=== PATIENT | female | born 1980 | race Caucasian/White ===

== ENCOUNTER 2017-01-19 04:28 | Emergency (ER) | payer BC ==
[2017-01-19] MEDS ORDERED: Ondansetron INJ* 2 MG/ML VIAL ONE (04:50)
[2017-01-19] MEDS ORDERED: Ondansetron INJ* 2 MG/ML VIAL IV ONE (04:51)
[2017-01-19] MEDS ORDERED: NS 0.9% 1000 ML* 2,000 ML IV ONE (04:51)
[2017-01-19] MEDS ORDERED: HYDROmorphone* 1 MG/ML 1 ML SYR IV SLOW PU ONE ×2 (05:29→06:23)
--- NOTE | 2017-01-19 05:40 | ED ---
Betty Clements Edward, scribed for Miguel Vargas MD on 01/19/17 at 0437 . Headache - HPI Summary HPI Summary: 37 y/o female presents to ED c/o LIRIANO starting at 03:00 today. The LIRIANO radiates to the R eye and R ear. Patient went to bed at 23:00 and woke up at 03:00 with a LIRIANO and nausea. Pt states that she feels as if she is dehydrated. 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 - History Of Current Complaint Chief Complaint: EDHeadache Stated Complaint: HEADACHE/DEHYDRATION/VOMITING Hx Obtained From: Patient Onset/Duration: Sudden Onset, Started hours ago - 03:00 today Radiates to: R eye and R ear Associated Signs And Symptoms: Nausea, Other (Noted In Comments) - Dehydrated - Allergies/Home Medications Allergies/Adverse Reactions: Allergies Allergy/AdvReac Type Severity Reaction Status Date / Time Albuterol Allergy Unknown Verified 01/19/17 04:34 Reaction Details Cephalexin [From Keflex] Allergy See Comment Verified 01/19/17 04:34 Ketorolac Tromethamine Allergy Rash And Verified 01/19/17 04:34 [From Toradol] Itching Latex Allergy Anaphylatic Verified 01/19/17 04:34 Shock Morphine Allergy Rash Verified 01/19/17 04:34 Penicillins [PCN] Allergy Hives Verified 01/19/17 04:34 PMH/Surg Hx/FS Hx/Imm Hx Previously Healthy: No Endocrine/Hematology History: Denies: Hx Anticoagulant Therapy, Hx Blood Disorders, Hx Diabetes, Hx Thyroid Disease, Hx Anemia, Hx Unexplained Bleeding Cardiovascular History: Reports: Hx Congestive Heart Failure, Other Cardiovascular Problems/Disorders - Hx OF pericarditis 2ndry to viral illness ( 2011) Denies: Hx Hypertension, Hx Pacemaker/ICD Respiratory History: Reports: Hx Asthma, Other Respiratory Problems/Disorders - nodule, bronchitis, pneumonia Denies: Hx Chronic Obstructive Pulmonary Disease (COPD) GI History: Denies: Hx Diverticulosis, Hx Gastroesophageal Reflux Disease, Hx Hiatal Hernia History: Denies: Hx Renal Disease Musculoskeletal History: Reports: Other Musculoskeletal History - right knee surgey Sensory History: Denies: Hx Hearing Aid Neurological History: Reports: Hx Migraine - receives prophylactic Denies: Hx Dementia, Hx Seizures Psychiatric History: Denies: Hx Panic Disorder, Hx Substance Abuse - Cancer History Hx Chemotherapy: No Hx Radiation Therapy: No - Surgical History Surgery Procedure, Year, and Place: 2000 right shoulder [facility] . 2003 right knee [facility]. 2001 right ovarian cyst [facility]. 2002 [facility]. 2002pylinodial cyst [facility] Hx Anesthesia Reactions: Yes - USUALLY N/V Infectious Disease History: Denies: Hx Hepatitis, Hx Human Immunodeficiency Virus (HIV), Traveled Outside the [place] in Last 30 Days - Family History Known Family History: Positive: Other - Positive for Breast CA - mother. Negative for Colitis - Social History Occupation: Employed Full-time Lives: With Family Alcohol Use: None Hx Substance Use: No Substance Use Type: Reports: None Hx Tobacco Use: No Smoking Status (MU): Never Smoked Tobacco Have You Smoked in the Last Year: No Review of Systems Constitutional: Other - Dehydrated Eyes: Negative ENT: Negative Cardiovascular: Negative Respiratory: Negative Positive: Nausea - due to LIRIANO Genitourinary: Negative Musculoskeletal: Negative Skin: Negative Positive: Headache Psychological: Normal All Other Systems Reviewed And Are Negative: Yes Physical Exam Triage Information Reviewed: Yes Vital Signs On Initial Exam: Initial Vitals Temp Pulse Resp BP Pulse Ox 97.5 F 64 20 114/70 99 01/19/17 04:30 01/19/17 04:30 01/19/17 04:30 01/19/17 04:30 01/19/17 04:30 Vital Signs Reviewed: Yes Appearance: Positive: Well-Appearing, Pain Distress - mild discomfort Skin: Positive: Warm Head/Face: Positive: Normal Head/Face Inspection Eyes: Positive: EOMI, RENETTA ENT: Positive: Hearing grossly normal Neck: Positive: Supple, Nontender Respiratory/Lung Sounds: Positive: Clear to Auscultation, Breath Sounds Present Cardiovascular: Positive: RRR Abdomen Description: Positive: Nontender, Soft Bowel Sounds: Positive: Present Musculoskeletal: Positive: Strength/ROM Intact Neurological: Positive: Alert, Oriented to Person Place, Time Diagnostics - Vital Signs Vital Signs Temp Pulse Resp BP Pulse Ox 01/19/17 04:30 97.5 F 64 20 114/70 99 - Laboratory Lab Statement: Any lab studies that have been ordered have been reviewed, and results considered in the medical decision making process. Re-Evaluation - Re-Evaluation 1 Re-Evaluation Time: 06:40 - Discuss patient care Change: Improved Headache Course/Dx - Course Assessment/Plan: 37 y/o female presents to ED c/o LIRIANO starting at 03:00 today. The LIRIANO radiates to the R eye and R ear. Patient went to bed at 23:00 and woke up at 03:00 with a LIRIANO and nausea. Pt states that she feels as if she is dehydrated. 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 Pt was given Zofran and IV fluids in the ED course. Pt will be d/c with f/u with PCP, and instructed to take medications as prescribed. - Diagnoses Provider Diagnoses: Migraine headache Discharge - Discharge Plan Condition: Improved Disposition: HOME Patient Education Materials: Migraine Headache (ED) Referrals: Aram Burton MD [Primary Care Provider] - 3 Days (Please f/u in 2-3 days) Additional Instructions: Take medications as prescribed The documentation as recorded by the Betty chavis Edward accurately reflects the service I personally performed and the decisions made by , Miguel Vargas MD.
[2017-01-19] MEDS ORDERED: NS 0.9% 1000 ML* 1,000 ML IV ONE (06:23)
[2017-01-19] MEDS ORDERED: Metoclopramide IV* 5 MG/ML 2 ML VIAL IV ONE (06:59)
[2017-01-19] MEDS ORDERED: diPHENhydraMINE IV* 50 MG/ML 1 ml VIAL (BENADRYL) IV ONE (06:59)
[2017-01-19 08:12] VITALS: BP 93/55
== END 2017-01-19 08:11 | disposition home or self-care (01) ==
LOC: ED 04:28
DX: G43.909 Migraine, unspecified, not intractable, without status migrainosus (principal); R11.0 Nausea; E86.0 Dehydration; I50.9 Heart failure, unspecified; J45.909 Unspecified asthma, uncomplicated; Z88.0 Allergy status to penicillin; Z88.1 Allergy status to other antibiotic agents; Z88.5 Allergy status to narcotic agent; Z91.040 Latex allergy status
CPT/HCPCS: 96361; 96374; 96375; 96376; 99284; J1170; J1200; J2405; J2765

== ENCOUNTER 2017-06-01 21:05 | Emergency (ER) | payer SELFPAY ==
[2017-06-01] MEDS ORDERED: Cyclobenzaprine TAB* 10 MG PO ONE (22:29)
--- NOTE | 2017-06-01 22:31 | ED ---
Upper Extremity Pain - HPI Summary HPI Summary: 37 female presents to ED with complaints of left shoulder pain after na injury that occurred at work. 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 States she felt some crackling and tearing. States since it has been aching and becomes more painful upon movement and using it. Patient denies current numbness /tingling. Has ROM however increases pain. States pain is mainly in the front of her shoulder without radiation. No other complaints. Is left hand dominant. Took ibuprofen for pain with some relief. No PMHx. - History of Current Complaint Chief Complaint: EDExtremityUpper Stated Complaint: LT ARM INJURY Time Seen by Provider: 06/01/17 21:27 Hx Obtained From: Patient Mechanism Of Injury: Twisted Onset/Duration: Started Hours Ago, Traumatic, Still Present Timing: Lasting Hours Severity Initially: Mild Severity Currently: Moderate Pain Location: Shoulder - left Character: Sharp - with movements, Aching Aggravating Factor(s): Movement, Lifting, Flexion, Extension, Internal/External Rotation, Abduction Alleviating Factor(s): Rest, OTC Meds Associated Signs & Symptoms: Negative: Swelling, Redness, Bruising, Weakness, Numbness/Tingling Related History: Dominant Hand Left - Allergies/Home Medications Allergies/Adverse Reactions: Allergies Allergy/AdvReac Type Severity Reaction Status Date / Time Albuterol Allergy Unknown Verified 01/19/17 04:34 Reaction Details Cephalexin [From Keflex] Allergy See Comment Verified 01/19/17 04:34 Ketorolac Tromethamine Allergy Rash And Verified 01/19/17 04:34 [From Toradol] Itching Latex Allergy Anaphylatic Verified 01/19/17 04:34 Shock Morphine Allergy Rash Verified 01/19/17 04:34 Penicillins [PCN] Allergy Hives Verified 01/19/17 04:34 PMH/Surg Hx/FS Hx/Imm Hx Endocrine/Hematology History: Denies: Hx Anticoagulant Therapy, Hx Blood Disorders, Hx Diabetes, Hx Thyroid Disease, Hx Anemia, Hx Unexplained Bleeding Cardiovascular History: Reports: Hx Congestive Heart Failure, Other Cardiovascular Problems/Disorders - Hx OF pericarditis 2ndry to viral illness ( 2011) Denies: Hx Hypertension, Hx Pacemaker/ICD Respiratory History: Reports: Hx Asthma, Other Respiratory Problems/Disorders - nodule, bronchitis, pneumonia Denies: Hx Chronic Obstructive Pulmonary Disease (COPD) GI History: Denies: Hx Diverticulosis, Hx Gastroesophageal Reflux Disease, Hx Hiatal Hernia History: Denies: Hx Renal Disease Musculoskeletal History: Reports: Other Musculoskeletal History - right knee surgey Sensory History: Denies: Hx Hearing Aid Neurological History: Reports: Hx Migraine - receives prophylactic Denies: Hx Dementia, Hx Seizures Psychiatric History: Denies: Hx Panic Disorder, Hx Substance Abuse - Cancer History Hx Chemotherapy: No Hx Radiation Therapy: No - Surgical History Surgery Procedure, Year, and Place: 2000 right shoulder [facility] . 2003 right knee [facility]. 2001 right ovarian cyst [facility]. 2002 [facility]. 2002pylinodial [facility] Hx Anesthesia Reactions: Yes - USUALLY N/V - Immunization History Immunizations Up to Date: Yes Infectious Disease History: No Infectious Disease History: Denies: Hx Hepatitis, Hx Human Immunodeficiency Virus (HIV), Traveled Outside the [place] in Last 30 Days - Family History Known Family History: Positive: Unknown, Other - Positive for Breast CA - mother. Negative for Colitis - Social History Alcohol Use: None Hx Substance Use: No Substance Use Type: Reports: None Hx Tobacco Use: No Smoking Status (MU): Never Smoked Tobacco Have You Smoked in the Last Year: No Review of Systems Constitutional: Negative Cardiovascular: Negative Respiratory: Negative Positive: Arthralgia, Myalgia - left shoulder Skin: Negative Neurological: Negative All Other Systems Reviewed And Are Negative: Yes Physical Exam Triage Information Reviewed: Yes Vital Signs On Initial Exam: Initial Vitals Temp Pulse Resp BP Pulse Ox 98.7 F 90 16 131/88 96 06/01/17 21:08 06/01/17 21:08 06/01/17 21:08 06/01/17 21:08 06/01/17 21:08 Vital Signs Reviewed: Yes Appearance: Positive: Well-Appearing, No Pain Distress, Well-Nourished Skin: Positive: Warm, Skin Color Reflects Adequate Perfusion, Dry. Negative: Cold, Soft, Erythema @ Head/Face: Positive: Normal Head/Face Inspection Neck: Positive: Supple, Nontender Respiratory/Lung Sounds: Positive: Clear to Auscultation, Breath Sounds Present. Negative: Rales, Rhonchi, Wheezes Cardiovascular: Positive: Normal, RRR, Pulses are Symmetrical in both Upper and Lower Extremities - 2+ radial b/l. Negative: Murmur, Rub Musculoskeletal: Positive: Strength/ROM Intact - however painful with movement of left shoulder, although able, Pain @ - left anterior shoulder, Other - no crepitus step off or obvious deformity noted, no ecchymosis or edema. biceps muscle intact, no c spine pain. rest of LUE normal exam. Negative: Limited @, Interruption @, Abnormal @, Edema Left Neurological: Positive: Normal, Sensory/Motor Intact, Alert, Oriented to Person Place, Time, CN Intact II-III, Reflexes Intact, NV Bundle Intact Distally - Aaron Coma Scale Coma Scale Total: 15 Diagnostics - Vital Signs Vital Signs Temp Pulse Resp BP Pulse Ox 06/01/17 21:08 98.7 F 90 16 131/88 96 - Laboratory Lab Statement: Any lab studies that have been ordered have been reviewed, and results considered in the medical decision making process. - Radiology left shoulder Xray Interpretation: No Acute Changes - no evidence for acute fracture or dislocation. possible calcific tendonitis Radiology Interpretation Completed By: ED Physician - Dr Ayala and myself, Radiologist Course/Dx - Course Course Of Treatment: xray obtained and negative for acute injury. appears to have suffered a sprain and possible ligament/rotator cuff or labrum injury. continue NSAIDs, heat/ice, rest, refrain from use and sling. Also recommended trying muscle relaxer. Patient stated she has sling at home from previous right shoulder injury. Not supplied another in ED. Follow up with PCP/Ortho. Aware of worsening signs and symptoms. No other concerns at this time. - Diagnoses Differential Diagnosis/HQI/PQRI: Positive: Fracture (Closed), Strain, Sprain Provider Diagnoses: Sprain of shoulder, left Discharge - Discharge Plan Condition: Good Disposition: HOME Prescriptions: Cyclobenzaprine TAB* [Flexeril 10 MG TAB*] 10 mg PO BEDTIME #10 tab Patient Education Materials: Shoulder Sprain (ED) Referrals: Aram Burton MD [Primary Care Provider] - Additional Instructions: Take prescribed flexeril as needed to help with pain, muscle spasm- see if it helps. Continue ibuprofen or naproxen to help with inflammation. Rest, sling and apply heat. Avoid use. Symptoms worsen or do not improve please follow up with ortho for further evaluation and imaging.
[2017-06-01 23:00] VITALS: BP 134/84
--- NOTE | 2017-06-02 07:14 | RAD ---
INDICATION: Left shoulder injury. TECHNIQUE: 4 views of the left shoulder were obtained. FINDINGS: The bones are in normal alignment. There is a small 2 mm calcific density adjacent to the proximal humerus. No acute fracture is seen. Joint spaces appear maintained. IMPRESSION: NO EVIDENCE FOR FRACTURE, POSSIBLE CALCIFIC TENDINITIS.
== END 2017-06-01 23:07 | disposition home or self-care (01) ==
LOC: ED 21:05
DX: S43.402A Unspecified sprain of left shoulder joint, initial encounter (principal); X58.XXXA Exposure to other specified factors, initial encounter; Y93.9 Activity, unspecified; Y92.9 Unspecified place or not applicable; I50.9 Heart failure, unspecified; J45.909 Unspecified asthma, uncomplicated; G43.909 Migraine, unspecified, not intractable, without status migrainosus; Z88.5 Allergy status to narcotic agent; Z88.0 Allergy status to penicillin; Z88.8 Allergy status to other drugs, medicaments and biological substances; Z88.1 Allergy status to other antibiotic agents; Z91.040 Latex allergy status
CPT/HCPCS: 99282; A9270-GY

== ENCOUNTER 2017-09-21 07:23 | Day surgery (SDC) | payer OTHER ==
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
[~2017-09-21 07:23] MED LIST: Buffered Lidocaine 0.9% SYRIN* 5 ML/SYR SYRINGE INTRADERM ONE; Dexamethasone IV* 4 MG/ML 1 ML (4 MG) IV SLOW PU ONE; Famotidine IV* 10 MG/ML 2 ML (20 mg) IV ONE
[2017-09-21] MEDS ORDERED: Dexamethasone IV* 4 MG/ML 1 ML (4 MG) ONE (07:34)
[2017-09-21] MEDS ORDERED: Clindamycin 900 MG IVPREMIX(* 900 MG/50 ML SDV IV ONE (07:35)
[2017-09-21] MEDS ORDERED: Famotidine IV* 10 MG/ML 2 ML (20 mg) ONE (07:35)
[2017-09-21] MEDS ORDERED: fentaNYL* 50 MCG/ML 2 ML VIAL (100 MCG VIAL) ONE (08:12)
[2017-09-21] MEDS ORDERED: Propofol* 10 MG/ML 20 ML BTL IV PUSH ONE (08:13)
[2017-09-21] MEDS ORDERED: Midazolam* 1 MG/ML 5 ML VIAL (5 MG) ONE (08:13)
[2017-09-21] MEDS ORDERED: Ketorolac INJ* 30 MG/ML 1 ML VIAL ONE (08:13)
[2017-09-21] MEDS ORDERED: Ondansetron INJ* 2 MG/ML VIAL ONE ×2 (08:13→10:51)
[2017-09-21] MEDS ORDERED: Scopolamine 1.5 mg* PATCH ONE (08:53)
[2017-09-21] MEDS ORDERED: ROPIVACAINE 5 MG/ML 30 ML BTL (0.5%) ONE (08:57)
[2017-09-21] MEDS ORDERED: Scopolamine 1.5 mg* PATCH TRANSDERM SCH (09:00)
[2017-09-21] MEDS ORDERED: Bupivacaine 0.25% SDV* 30 ML ONE (09:09)
[2017-09-21] MEDS ORDERED: Lidocaine 2% PF * 5 ML VIAL ONE (09:14)
[2017-09-21] MEDS ORDERED: Ondansetron INJ* 2 MG/ML VIAL IV PRN (09:43)
[2017-09-21] MEDS ORDERED: oxyCODONE/Acetamin 5/325 MG* TAB PO PRN (09:43)
[2017-09-21] MEDS ORDERED: DiMENhydriNATE IV* 50 MG/ML VIAL IV PUSH PRN (09:43)
[2017-09-21] MEDS ORDERED: fentaNYL* 50 MCG/ML 2 ML VIAL (100 MCG VIAL) IV PRN (09:43)
[2017-09-21] MEDS ORDERED: Naloxone* 0.4 MG/ML 1 ML VIAL IV PRN (09:43)
[2017-09-21] MEDS ORDERED: methylPREDNISolone ACETATE 80* 80 MG/ML 1 ML VIAL ONE (10:16)
[2017-09-21] MEDS ORDERED: DiMENhydriNATE IV* 50 MG/ML VIAL ONE (11:25)
[2017-09-21 13:51] VITALS: BP 110/70
--- NOTE | 2017-09-22 17:57 | OP ---
DATE OF OPERATION: 09/21/17 - [facility] DATE OF : 78 SURGEON: Rosalva Mcdaniel MD PHOTOCOMPOSING KEYBOARD OPERATOR: VITO Cox. An pet care assistant was needed for the entirety of the case to help with positioning, retraction, and was utilized throughout all portions of the case. ANESTHESIOLOGIST: Dr. Lombardo. ANESTHESIA: General, interscalene block. PRE-OP DIAGNOSES: Left shoulder partial thickness tear of the rotator cuff and AC sprain and bicipital tendinitis. POST-OP DIAGNOSES: Low-grade partial thickness tear, impingement, bicipital tendinitis as well as undersurface tearing of the subscapularis, and acromioclavicular joint arthritis. OPERATIVE PROCEDURE: Left shoulder arthroscopy with: 1. Extensive glenohumeral debridement including debridement of the subscap. 2. Subacromial decompression with acromioplasty. 3. Distal clavicle excision. 4. Subpectoral biceps tenodesis. 5. 80 mg of depomedrol injection COMPLICATIONS: None. ESTIMATED BLOOD LOSS: Minimal. IMPLANTS USED: One Bhatia and Nephew, Q-Fix anchor. INDICATIONS: Alva Duncan is a 37-year-old female who sustained a work-related injury in May 2017. She has had persistent shoulder pain. She is refractory to conservative management including physical therapy, antiinflammatories, and injections. She has been diagnosed with a partial thickness tear of the rotator cuff, impingement, AC joint arthritis with AC joint arthropathy and bicipital tendinitis. Risks and benefits of the surgery were discussed at length including, but are not limited to bleeding, infection, damage to nerves, vessels, surrounding structures, wound nonhealing, persistent pain, need for further surgery, scarring, stiffness, incomplete relief of symptoms, and risk of anesthesia, and failure. DESCRIPTION OF PROCEDURE: The patient was greeted in the preoperative area by the attending surgeon. The correct extremity was marked and consent was confirmed. She then underwent interscalene nerve block by the anesthesiologist, after which she was brought back to the operating suite, where she was placed in the supine position on the operating table. She underwent general anesthesia and endotracheal intubation, after which she was appropriately positioned in the right lateral decubitus position. All bony prominences are padded. She was secured with a pegboard. The left arm was draped unsterile with 10 pounds of traction. The left shoulder was prepped and draped in the usual sterile fashion beginning with chlorhexidine soap scrub, and alcohol wipes and a final prep with ChloraPrep. After appropriate surgical pause including site, side, procedure and administration of antibiotics, the standard postero-lateral portal was made with the #11 blade. The scope was introduced into the joint. The joint was examined, there was grade 0 changes to the glenohumeral joint. The anterior and posterior labrum had mild fraying, superior labrum had partial tearing. The biceps maggy was damaged and biceps was subluxed. The undersurface of the subscap had partial thickness tear. The undersurface of the supraspinatus looked pristine. The anterior portal was made in an outside-in fashion. Shaver was used to debride back the anterior, posterior and superior labrum and take the biceps to range of motion, again the maggy was damaged that was obvious and the undersurface of the subscap was damaged. The biceps was then tenotomized and the stump debrided back. The subscapularis was visualized and debrided back only as only a small portion of the tendon was damaged; therefore , the decision was made to not repair this as it only small partial tear. Once the debridement was completed, attention was directed to subacromial space. The scope was positioned in the subacromial space. Lateral portal was made in an outside-in fashion. Shaver was used to remove the abundant bursa that was present, which was significant and thick. Once this was complete, the under- surface of the acromion was skeletonized using electrocautery device. There was a small anterolateral spur, which was then debrided back into a 4-0 oval bur. CA ligament was peeled back. Once the acromioplasty was complete, attention was then directed to the AC joint. There was stenosis of the AC joint. The bur was brought into the anterior portal and approximately 8 mm of distal clavicle was removed using arthroscopic visualization. Once this was done, the clavicle was taken to range of motion. The fluid and debris were removed from this portion of the case. Attention was directed back to the rotator cuff, which was gently probed. There was no full-thickness tears. There was mild fraying on the bursal side of the supraspinatus, but it was not significant. Decision was made to not take this down as it was minimal damage. The final images were obtained and 18- gauge needle was placed under arthroscopic guidance, visualization for later subacromial injection. The bed was airplaned to the left side. The anterior aspect of the shoulder was prepped again using ChloraPrep. A #15 blade was used to make an incision inline with the biceps tendon. Soft tissues were carefully dissected using Metzenbaum scissors until the fascia was identified. The remainder section was then bluntly. The bicipital groove was then palpated. The biceps was brought through the wound. The groove was then prepared in the usual fashion using electrocautery device and the red-ball rasp and osteotome to allow for bony bleeding bed. The Q-Fix anchor drill guidance was then placed and then drilled unicortically. The Q-Fix was deployed with excellent purchase. Sutures were then passed through the tendon approximately 1 cm proximal to the musculotendinous junction in a Xiang-Andrés type configuration. In the excess bicipital stumps, there was synovitis and tendinitis. The biceps was then tied back down. The wound were copiously irrigated with sterile saline. The anterior wounds closed with 2-0 Vicryl and 3-0 Monocryl. The portals were closed with 3-0 nylon. The anterior wound was injected with 20 cc of 0.25% Marcaine plain. She was awoken from anesthesia and transferred to the PACU in stable condition after case has been done. Sterile dressings were applied as well as upper sling. She was awoken from anesthesia and transferred to the PACU in stable condition. POSTOPERATIVE PLAN: She will be nonweightbearing. She will be discharged on pain medications, and antibiotics. She will be in the sling for approximately 4 weeks. She will start physical therapy in approximately 10 days. I will see the patient back in 10 to 14 days. DVT prophylaxis was discussed and deferred due to no personal or family history of DVT. [id number]/[facility] #: [id number] KATINA
== END 2017-09-21 13:54 | disposition home or self-care (01) ==
LOC: OR 07:23
PROVIDERS: ATTEND Orthopaedic Surgery
DX: S46.012A Strain of muscle(s) and tendon(s) of the rotator cuff of left shoulder, initial encounter (principal); S46.112A Strain of muscle, fascia and tendon of long head of biceps, left arm, initial encounter; M75.22 Bicipital tendinitis, left shoulder; M75.42 Impingement syndrome of left shoulder; M19.012 Primary osteoarthritis, left shoulder; G89.18 Other acute postprocedural pain; X50.0XXA Overexertion from strenuous movement or load, initial encounter; Y93.89 Activity, other specified; Y92.89 Other specified places as the place of occurrence of the external cause; Y99.0 Civilian activity done for income or pay; E28.2 Polycystic ovarian syndrome; E27.8 Other specified disorders of adrenal gland; J45.909 Unspecified asthma, uncomplicated
CPT/HCPCS: 81025; A9270-GY; C1776; J1040; J1100; J1240; J1885; J2250; J2405; J2704; J2795; J3010

== ENCOUNTER 2017-10-01 08:17 | Emergency (ER) | payer OTHER ==
--- NOTE | 2017-10-01 10:10 | RAD ---
INDICATION: Left arm pain one week after shoulder surgery COMPARISON: None TECHNIQUE: Real time ultrasound images of the soft tissues of the left upper extremity at the patient's indicated site of swelling and tenderness were acquired with peterson scale and Doppler color flow imaging. FINDINGS: Sonographic examination of the subcutaneous tissues of the left upper extremity and vein were acquired. There is no subcutaneous fluid collection. There is occlusive thrombus of the left cephalic vein from the mid forearm to the proximal upper arm. IMPRESSION: Thrombotic occlusion of the left cephalic vein.
[2017-10-01] MEDS ORDERED: Aspirin EC TAB* 81 MG TAB.EC PO ONE (10:47)
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
[2017-10-01 12:14] VITALS: BP 106/61
== END 2017-10-01 12:13 | disposition home or self-care (01) ==
LOC: ED 08:17
DX: I80.8 Phlebitis and thrombophlebitis of other sites (principal); I82.612 Acute embolism and thrombosis of superficial veins of left upper extremity; R03.0 Elevated blood-pressure reading, without diagnosis of hypertension; I50.9 Heart failure, unspecified
CPT/HCPCS: 99282; A9270-GY

== ENCOUNTER 2018-06-08 05:35 | Day surgery (SDC) | payer BC ==
[~2018-06-08 05:35] MED LIST changes: -Dexamethasone IV* 4 MG/ML 1 ML (4 MG) IV SLOW PU ONE; -Famotidine IV* 10 MG/ML 2 ML (20 mg) IV ONE
[2018-06-08] MEDS ORDERED: Famotidine IV* 10 MG/ML 2 ML (20 mg) ONE (05:58)
[2018-06-08] MEDS ORDERED: Lactated Ringers 1000 ML Bag* 1,000 ML IV SCH (06:00)
[2018-06-08] MEDS ORDERED: Famotidine IV* 10 MG/ML 2 ML (20 mg) IV ONE (06:00)
[2018-06-08] MEDS ORDERED: DOXYcycline IV* 100 MG in NS 0.9% 250 ML* 250 ML IVPB ONE (07:00)
[2018-06-08] MEDS ORDERED: Chloroprocaine 2%* 20 ML VIAL ONE (07:16)
[2018-06-08] MEDS ORDERED: DiMENhydriNATE IV* 50 MG/ML VIAL ONE (07:16)
[2018-06-08] MEDS ORDERED: Ondansetron INJ* 2 MG/ML VIAL ONE (07:16)
[2018-06-08] MEDS ORDERED: Lidocaine 2% PF * 5 ML VIAL ONE (07:16)
[2018-06-08] MEDS ORDERED: Ketorolac INJ* 30 MG/ML 1 ML VIAL ONE (07:16)
[2018-06-08] MEDS ORDERED: fentaNYL* 50 MCG/ML 2 ML VIAL (100 MCG VIAL) ONE (07:23)
[2018-06-08] MEDS ORDERED: Acetaminophen TAB* 325 MG PO PRN (07:47)
[2018-06-08] MEDS ORDERED: DiMENhydriNATE IV* 50 MG/ML VIAL IV PUSH PRN (07:47)
[2018-06-08] MEDS ORDERED: fentaNYL* 50 MCG/ML 2 ML VIAL (100 MCG VIAL) IV PRN (07:47)
[2018-06-08 09:55] VITALS: BP 118/66
--- NOTE | 2018-06-08 10:16 | OP ---
DATE OF OPERATION: 06/08/18 - [facility] DATE OF : 78 SURGEON: Nikunj Fuentes MD GENERATOR TECHNICIAN: None. ANESTHESIA: Spinal. PRE-OP DIAGNOSIS: Missed . POST-OP DIAGNOSIS: Missed . OPERATIVE PROCEDURE: D and C. ESTIMATED BLOOD LOSS: 50 cc. SPECIMEN: Includes products of conception. FINDINGS: Small amount of tissue. DESCRIPTION OF PROCEDURE: The patient identified, procedure identified as a D and C. The patient was taken to the operating room, prepped and draped in the usual fashion in dorsal lithotomy position under spinal anesthesia. Two single- tooth tenaculums were placed in the anterior lip of the cervix. Cervix was easily dilated up to a #31 Galvan dilator. The #10 suction curette was inserted and suction curettage performed with a small amount of tissue obtained. The sharp curette was inserted and sharp curettage performed until a gritty sensation was felt throughout the uterine circumference and no further tissue was obtained. Good hemostasis was verified and all instruments removed from vagina and the patient returned to the recovery room in stable condition. [id number] #: [id number] MTDD
== END 2018-06-08 09:58 | disposition home or self-care (01) ==
LOC: OR 05:35
PROVIDERS: ATTEND Obstetrics & Gynecology
DX: O02.1 Missed abortion (principal); J45.909 Unspecified asthma, uncomplicated; E28.2 Polycystic ovarian syndrome
CPT/HCPCS: 99001; J1240; J1885; J2400; J2405; J3010

== ENCOUNTER 2018-06-13 18:13 | Day surgery (SDC) | payer BC ==
[2018-06-13 18:41] LABS: ABS Basophils 0.1 10^3/ul (0-0.2); ABS Eosinophils 0.4 10^3/ul (0-0.6); ABS Lymphocytes 1.8 10^3/ul (1.0-4.8); ABS Monocytes 0.6 10^3/ul (0-0.8); ABS Neutrophils 6.2 10^3/ul (1.5-7.7); ABS Nucleated RBC 0 10^3/ul; Hematocrit 42 % (35-47); Hemoglobin 14.3 g/dl (12.0-16.0); Lymphocyte % 20.3 %; Mean Corpuscular HGB Conc 34 g/dl (31-36); Mean Corpuscular Hemoglobin 31 pg (27-31); Mean Corpuscular Volume 90 fL (80-97); Mean Platelet Volume 8.2 fL (7.4-10.4); Nucleated Red Blood Cells % 0.1; Platelet Count 273 10^3/ul (150-450); Red Blood Count 4.68 10^6/ul (4.00-5.40); Red Cell Distribution Width 14 % (10.5-15)
[2018-06-13 18:50] LABS: Albumin 4.7 g/dL (3.2-5.2); Albumin/Globulin Ratio 1.7 (1-3); BUN/Creatinine Ratio 19.5 (8-20); Calcium 9.5 mg/dL (8.6-10.3); EGFR Non-African American 77.6 (>60); Globulin 2.8 g/dL (2-4); Potassium 3.9 mmol/L (3.5-5.0); Total Bilirubin 0.6 mg/dL (0.2-1.0); Total Protein 7.5 g/dL (6.4-8.9)
--- OUTSIDE RECORDS SUMMARY | 2018-06-13 19:38 | XMS REPORT | Continuity of Care Document ---
:1980 External Reference #:[id number] Author Name Nikunj Fuentes M.D. Address [address] [facility] [place] [place] [address] Care Team Providers Name Role Phone Dr. Aram Burton Primary Care Physician Unavailable Payers Type Date Identification Numbers Payment Provider Subscriber Effective: Policy Number: [id number] Joel BC/BS Alfredo J Perla 2005 [facility] Expires: 2009 PayID: [id number] [facility] [id number] ANA LUISA [place] [id number] Effective: 2010 Policy Number: Joel VASQUEZ/BS [place] Alfredo J Perla [id number] [place] Expires: 2013 PayID: [id number] [facility] [id number] ANA LUISA [place] [phone] Effective: 2013 Policy Number: Joel VASQUEZ/BS [place] Alfredo J Perla [id number] [place] PayID: [id number] [facility] [id number] ANA LUISA [place] [address] Advance Directives Description No Information Available Problems Date Description Provider Status Onset: 06/25/2015 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 Family History Date Family Member(s) Problem(s) Comments General Cancer General Diabetes Mellitus, II General Heart Disease Father Hypercholesterolemia Father Hypertension Mother Breast Cancer Mother Seizure Disorder Mother Multiple Sclerosis (MS) Mother Hypercholesterolemia Number of Children None Number of Siblings Siblings: 1 First Sister IBS Paternal Grandfather due to Sepsis () Paternal Grandfather Diabetes Paternal Grandmother due to MO () Paternal Grandmother Diabetes Maternal Grandfather due to MO () Maternal Grandfather Diabetes Maternal Grandmother due to Ovarian Cancer () Social History Type Date Description Comments Sex Unknown Education Highest level of education completed is 2 years of college Marital Status Patient is Living Situation Lives with spouse Diet Diet is healthy and well balanced Sleep Typically sleeps 7 hours a night 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[employer] [employer] [place] Cigarette Use Never smoked cigarettes Alcohol Rarely drinks alcohol Tobacco Use Start: Unknown Patient has never smoked Drug Use Never used drugs Smoking Status Reviewed: 06/05/18 Patient has never smoked Daily Caffeine Does not consume caffeine Exercise Type/Frequency Exercises regularly Current Seat Belt/Car Seat Always uses a seat belt Currently Active The patient is currently sexually active Contraceptive Methods Past methods of control used include condoms STD's No STD history Allergies, Adverse Reactions, Alerts Date Description Reaction Status Severity Comments 07/09/2005 Penicillin Active 07/09/2005 Keflex Active 07/09/2005 Latex Active 10/14/2008 Toradol Oral Active 04/17/2012 Morphine Active Medications Medication Date Status Form Strength Qnty SIG Indications Ordering Provider Ibuprofen 06/05/ Active Tablets 600mg 30tabs take one Z01.818 Nikunj Alfonso 2018 tab by Gelber, mouth every M.D. 6 hours as needed pain Dha / Active Capsules 200mg 1 by mouth Unknown 0000 every day Letrozole 09/19/ Hx Tablets 2.5mg 5tabs 1 by mouth Nikunj Alfonso 2018 - every day Gelber, 05/22/ days 3-7 M.D. 2018 Progesterone 07/19/ Hx Capsules 200mg 12caps 1 by mouth Nikunj Alfonso Micronized 2017 - every day x Gelber, 08/30/ days M.D. 2017 Letrozole 07/19/ Hx Tablets 2.5mg 5tabs 1 by mouth Nikunj Alfonso 2018 - every day Gelber, 08/30/ days 3-7 M.D. 2017 Prednisone 07/19/ Hx Tablets 5mg 60tabs 1 po qd N97.0 Nikunj Alfonso 2017 - Gelber, 08/30/ M.D. 2018 No Active 06/29/ Hx Unknown Medications 2016 - 2017 Ibuprofen 11/30/ Hx Tablets 600mg 24tabs 1 by mouth Dvora 2016 - q6 hours as Yobani, 06/29/ needed M.D. 2017 Oxycodone-Aceta 11/30/ Hx Tablets 5-325mg 12tabs 1 tablet by Dvwil minophen 2015 - mouth q4 Yobani, 07/11/ hours as M.DLe 2015 needed for strong pain Zofran 11/30/ Hx Tablets 4mg 8tabs one tablet Dvorah 2015 - po q6 hours Yobani, 07/11/ prn nausea M.DLe 2016 Diclegis 10/28/ Hx Tablets DR 10-10mg 60tabs take 2 Lizzie 2015 - tablets by Hendrickson, 07/11/ mouth at CN 2016 bedtime Letrozole 06/24/ Hx Tablets 2.5mg 10tabs 1 by mouth Nikunj Alfonso 2015 - every day Gelber, 10/28/ days 3-7 M.DLe 2015 Doxycycline 05/27/ Hx Capsules 100mg 6caps 1 by mouth Caterina Monohydrate 2014 - twice a day Casper, 10/28/ for 3 days/ 2015 start day before procedure Dha 05/08/ Hx Capsules 200mg 120cap 1 PO qd Nikunj Alfonso 2012 - s Geligor, 06/29/ MTimmy 2016 Clotrimazole-7 04/15/ Hx Cream 1% 1Tube 1 Nikunj Alfonso 2010 - applicator Gina, 03/01/ qhs x 7 M.DLe 2011 None / Hx Unknown 0000 - 2012 Multivitamins / Hx Unknown 0000 - 2012 Prednisone / Hx Unknown - 2017 Medications Administered in Office Medication Date Status Form Strength Qnty SIG Indications Ordering Provider PT SCRN Tbco Administered Injection Nikunj Hernandez as Non User 018 Viv Fuentes PT SCRN Tbco Administered Injection Nikunj Alfonso Id as Non User 018 Viv Fuentes PT SCRN Tbco Administered Injection Nikunj Alfonso Id as Non User 018 Viv Fuentes PT SCRN Tbco Administered Injection Nikunj Hernandez as Non User 018 Viv Fuentes PT SCRN Tbco Administered Injection Nikunj Hernandez as Non User 018 Viv Fuentes Immunizations Description No Information Available Vital Signs Date Vital Result Comment 06/05/2018 1:45pm BP Systolic 122 mmHg BP Diastolic 66 mmHg Height 61 inches 5'1" Weight 150.00 lb BMI (Body Mass Index) 28.3 kg/m2 Last Menstrual Period 8227245 2 Parity 0 05/22/2018 8:06am BP Systolic 126 mmHg BP Diastolic 76 mmHg Height 61 inches 5'1" Weight 150.00 lb BMI (Body Mass Index) 28.3 kg/m2 Last Menstrual Period 7677192 2 Parity 0 08/30/2017 8:53am BP Systolic 108 mmHg BP Diastolic 64 mmHg Height 61 inches 5'1" Weight 146.00 lb BMI (Body Mass Index) 27.6 kg/m2 Last Menstrual Period [id number] 1 Parity 0 07/19/2017 11:29am BP Systolic 128 mmHg BP Diastolic 78 mmHg Height 61 inches 5'1" Weight 144.00 lb BMI (Body Mass Index) 27.2 kg/m2 Last Menstrual Period [id number] 07/12/2017 9:24am BP Systolic 120 mmHg BP Diastolic 86 mmHg Height 61 inches 5'1" Weight 143.00 lb BMI (Body Mass Index) 27.0 kg/m2 Last Menstrual Period [id number] 1 Parity 0 06/29/2016 8:09am BP Systolic 122 mmHg BP Diastolic 72 mmHg Height 61 inches 5'1" Weight 144.00 lb BMI (Body Mass Index) 27.2 kg/m2 Last Menstrual Period 8761681 1 Parity 0 12/10/2015 8:22am Body Temperature 97.7 F Height 61 inches 5'1" Weight 151.00 lb BMI (Body Mass Index) 28.5 kg/m2 11/26/2015 3:13pm BP Systolic 118 mmHg BP Diastolic 72 mmHg Body Temperature 98.6 F Heart Rate 72 /min Height 61 inches 5'1" Weight 153.00 lb BMI (Body Mass Index) 28.9 kg/m2 Last Menstrual Period 4044900 1 11/25/2015 1:33pm BP Systolic 116 mmHg BP Diastolic 78 mmHg Height 61 inches 5'1" Weight 153.00 lb BMI (Body Mass Index) 28.9 kg/m2 Last Menstrual Period 9628628 1 Parity 0 05/19/2015 8:11am BP Systolic 120 mmHg BP Diastolic 82 mmHg Height 61 inches 5'1" Weight 147.00 lb BMI (Body Mass Index) 27.8 kg/m2 Last Menstrual Period 6505989 0 Parity 0 05/14/2014 9:20am BP Systolic 108 mmHg BP Diastolic 72 mmHg Height 61 inches 5'1" Weight 144.00 lb BMI (Body Mass Index) 27.2 kg/m2 Last Menstrual Period 0992355 0 Parity 0 05/08/2013 7:46am BP Systolic 108 mmHg BP Diastolic 64 mmHg Height 60.5 inches 5'0.50" Weight 140.00 lb BMI (Body Mass Index) 26.9 kg/m2 Last Menstrual Period 8816846 0 04/17/2012 10:57am BP Systolic 110 mmHg BP Diastolic 72 mmHg Height 61 inches 5'1" Weight 132.00 lb BMI (Body Mass Index) 24.9 kg/m2 Last Menstrual Period 8759174 0 Parity 0 04/12/2011 9:27am BP Systolic 112 mmHg BP Diastolic 70 mmHg Height 61.5 inches 5'1.50" Weight 128.00 lb BMI (Body Mass Index) 23.8 kg/m2 Last Menstrual Period 3030349 0 Parity 0 10/16/2009 10:12am BP Systolic 940 mmHg Height 61.5 inches 5'1.50" Weight 137.00 lb BMI (Body Mass Index) 25.5 kg/m2 Last Menstrual Period 3332493 10/14/2008 8:06am BP Systolic 112 mmHg BP Diastolic 70 mmHg Height 61.5 inches 5'1.50" Weight 139.00 lb BMI (Body Mass Index) 25.8 kg/m2 Last Menstrual Period 6422879 0 10/13/2007 9:00am BP Systolic 108 mmHg BP Diastolic 72 mmHg Height 61.5 inches 5'1.50" Weight 147.00 lb BMI (Body Mass Index) 27.3 kg/m2 Last Menstrual Period 7689371 0 07/29/2006 9:08am BP Systolic 100 mmHg BP Diastolic 58 mmHg Height 61.5 inches 5'1.50" Weight 126.00 lb BMI (Body Mass Index) 23.4 kg/m2 Last Menstrual Period 2375968 0 Results Test Date Facility Test Result H/L Range Note Laboratory test 05/22/2018 [facility] Progesterone 20.0 ng/mL 1 finding [place], [place] [id number] [phone] Laboratory test 06/29/2016 [facility] Cytology SEE RESULT 2 [place] [address] BELOW [phone] Human Papilloma Virus Rna Negative N Negative 3 Laboratory test 12/01/2015 [facility] Surgical SEE RESULT [address] [place] [address] Pathology BELOW [phone] Urine Culture And 12/01/2015 [facility] Urine Culture SEE RESULT [place] [address] BELOW [phone] CBC Auto Diff 11/28/2015 [facility] White Blood 10.2 N 3.5-1 [place] [address] Count 10^3/uL 0.8 [phone] Red Blood Count 4.70 10^6/uL N 4.0-5.4 Hemoglobin 14.3 g/dL N 12.0-16.0 Hematocrit 42 % N 35-47 Mean Corpuscular Volume 88 fL N 80-97 Mean Corpuscular Hemoglobin 30 pg N 27-31 Mean Corpuscular HGB Conc 35 g/dL N 31-36 Red Cell Distribution Width 14 % N 10.5-15 Platelet Count 236 10^3/uL N 150-450 Mean Platelet Volume 8 um3 N 7.4-10.4 Abs Neutrophils 8.0 10^3/uL High 1.5-7.7 Abs Lymphocytes 1.5 10^3/uL N 1.0-4.8 Abs Monocytes 0.4 10^3/uL N 0-0.8 Abs Eosinophils 0.2 10^3/uL N 0-0.6 Abs Basophils 0 10^3/uL N 0-0.2 Abs Nucleated RBC 0 10^3/uL N Granulocyte % 78.5 % N 38-83 Lymphocyte % 14.7 % Low 25-47 Monocyte % 4.2 % N 1-9 Eosinophil % 2.2 % N 0-6 Basophil % 0.4 % N 0-2 Nucleated Red Blood Cells % 0 N Urine Culture And 11/28/2015 [facility] Urine Culture SEE RESULT 6 [place] [address] BELOW [phone] Laboratory test 11/28/2015 [facility] Lactic Acid 1.3 mmol/L N 0.5-2 7 [place] [address] .0 [phone] Protime 11/28/2015 [facility] Inr 0.98 N 0.89- [place] [address] 1.11 [phone] Laboratory test 11/28/2015 [facility] PTT (Aptt) 28.6 seconds N 26.0- [place] [address] 36.3 [phone] Urinalysis Profile 11/28/2015 [facility] [place] [address] [phone] Urine Appearance Cloudy N Urine Specific Red Bud 1.018 N 1.010-1.030 Urine pH 6.0 N 5-9 Urine Urobilinogen Negative N Negative Urine Ketones Negative N Negative Urine Protein Negative N Negative Urine Leukocytes 3+ Abnormal Negative Urine Blood Negative N Negative Urine Nitrite Negative N Negative Urine Bilirubin Negative N Negative Urine Glucose Negative N Negative Urine White Blood Cell 1+(6-10/hpf) Abnormal Absent Urine Red Blood Cell Absent N Absent Urine Bacteria 3+ Abnormal Absent Urine Squamous Epithelial Cell Present Abnormal Absent Comp Metabolic Panel 11/28/2015 [facility] Sodium 135 mmol/L N 133-145 [place] [address] [phone] Potassium 3.3 mmol/L Low 3.5-5.0 Chloride 104 mmol/L N 101-111 Co2 Carbon Dioxide 23 mmol/L N 22-32 Anion Gap 8 mmol/L N 2-11 Glucose 121 mg/dL High 70-100 Blood Urea Nitrogen 9 mg/dL N 6-24 Creatinine 0.65 mg/dL N 0.51-0.95 BUN/Creatinine Ratio 13.8 N 8-20 Calcium 9.5 mg/dL N 8.6-10.3 Total Protein 7.1 g/dL N 6.4-8.9 Albumin 4.5 g/dL N 3.2-5.2 Globulin 2.6 g/dL N 2-4 Albumin/Globulin Ratio 1.7 N 1-3 Total Bilirubin 1.20 mg/dL High 0.2-1.0 Alkaline Phosphatase 50 U/L N 34-104 Alt 28 U/L N 7-52 Ast 19 U/L N 13-39 Egfr Non- 103.1 N >60 Egfr 132.6 N >60 8 Laboratory test finding 11/28/2015 [facility] Lipase 29 U/L N 11.0-82.0 [place] [address] [phone] C Reactive Protein 1.08 mg/L N < 5.00 9 HCG 81995.00 mIU/mL N 10 Laboratory test 11/26/2015 [facility] HCG 19299.00 N 11 finding [place] [address] mIU/mL [phone] Laboratory test 11/25/2015 [facility] HCG 63553.00 N 12 finding [place] [address] mIU/mL [phone] Type And Screen 11/25/2015 [facility] Patient Blood O Positive N [place] [address] Type [phone] Antibody Screen NEGATIVE N Laboratory test 06/05/2015 [facility] Negative N Negative 13 finding [place] [address] (HCG) Urine [phone] Thyroid 05/19/2015 [facility] Thyroid Stim 0.8 mIU/L N 0.3- 4.2 14 Function [place] [address] Hormone [place] [phone] Laboratory test 05/19/2015 [facility] Cytology SEE RESULT 15 finding [place] [address] BELOW [phone] Human Papilloma Virus Rna Negative N Negative 16 Laboratory test 04/17/2012 [facility] Cytology RUN DATE: 17 finding [place] [address] SEE [phone] NOTE> Laboratory test 04/12/2011 [facility] Cytology 18 finding [place] [address] --- <SEE [phone] NOTE> Laboratory test 10/16/2009 [facility] Cytology 19 finding [place] [address] --- <SEE [phone] NOTE> Laboratory test 10/14/2008 [facility] Cytology 20 finding [place] [address] --- <SEE [phone] NOTE> GC/ZHL On Thin 10/14/2008 [facility] GC On Thin NEGATIVE Negative 21 Prep [place] [address] Prep Vial [phone] CHL On Thin Prep Vial NEGATIVE Negative 22 Laboratory test 10/14/2008 [facility] TSH 0.63 MIU/ML 0.34- 5.60 [place] [address] [phone] Laboratory test 08/04/2006 [facility] Glucose 79 mg/dL 70- 105 [place] [address] [phone] Insulin 7.9 MU/L 3.0-28.0 23 TSH 0.70 MIU/ML 0.34-5.60 Laboratory 07/29/2006 [facility] Cytology 24 [place] [address] <SEE NOTE> [phone] Laboratory 07/01/2004 [facility] Rubella [place] [address] Screen [phone] 1 Female reference ranges for Progesterone: Follicular phase.......0.3 - 1.5 ng/ml Mid-luteal phase.......5.2 - 18.5 ng/ml Postmenopausal.........< 0.8 ng/ml 1st trimester.........4.7 - 50.0 ng/ml 2nd trimester.........19.4 - 45.3 ng/ml 2 SEE RESULT BELOW Name: ALFREDO NICHOLS : [address]: Nikunj Fuentes MD Acct: [id number] Unit: [id number] AGE: 36 Location: [facility] Re06/29/16 SEX: F Status: REG REF SPEC: [id number] CRISSY: 06/29/16 [facility] DR: Nikunj Fuentes MD REQ: [id number] RECD: 06/29/160224 STATUS: SOUT _ ORDERED: IMAGE ANALYSIS, HPV/Thin Prep COMMENTS: [id number] FINAL DIAGNOSIS Negative for Intraepithelial lesion or Malignancy A. Ectocervical/Endocervical Specimen Adequacy: Satisfactory of evaluation Transformation zone component identified Patient Information: HPV: High risk HPV RNA testing regardless of pap results. Actual Specimen Date: 06/29/16 Last Menstrual Date: 06/02/16 Date of Last Specimen: 05/21/15 Date Time Test Result Flag (u) Normal Range 06/29/16832 HPV RNA Negative Negative The high-risk HPV types detected by the assay include: 16, 18, 31, 33, 35, 39, 45, 51, 52, 56, 58, 59, 66, and 68. Signed (signature on file) OUMAR Cruz (ASCP) 06/30 1700 This Pap test was evaluated with the assistance of the ThinPrep Test Imaging System. Due to cytologic findings at the special procedure technologist microscope, comprehensive manual rescreening by a Service Developer may be required. The Pap Smear is a screening test designed to aid in the detection of premalignant and malignant conditions of the uterine cervix. It is not a diagnostic procedure and should not be used as the sole means of detecting cervical cancer. Both false- positive and false- negative reports do occur. Depending on your risk status, a Pap smear should be obtained and evaluated every 1-3 years. END OF REPORT * ML=Testing performed at Main Lab DEPARTMENT OF PATHOLOGY, [address] [place] [address] Michael Foster M.D. Director [facility] # [id number] 3 The high-risk HPV types detected by the assay include: 16, 18, 31, 33, 35, 39, 45, 51, 52, 56, 58, 59, 66, and 68. 4 SEE RESULT BELOW Name: ALFREDO NICHOLS : [address]: Bandar Hilton MD Acct: [id number] Unit: [id number] AGE: 35 Location: [place] Re12/01/15 SEX: F Status: REG [facility] SPEC: [id number] CRISSY: 12/01/1554 [facility] DR: Bandar Hilton MD REQ: [id number] RECD: 12/01/15-1037 STATUS: SOUT _ ORDERED: LEVEL IV FINAL DIAGNOSIS Uterus, contents: -- Products of conception including immature chorionic villi. PRE-OPERATIVE DIAGNOSIS Missed . GROSS DESCRIPTION The specimen is received in formalin labeled, Products of Conception, and consists of a 6.5 x 5.3 x 1.2 cm aggregate of antoine-pink membranous and papilliferous soft tissue fragments admixed with red-brown blood clot and mucus. Chorionic villi are identified. No parts are identified. [employer] Consultant sections, two cassettes. Signed (signature on file) Michael Foster MD 1302 END OF REPORT * ML=Testing performed at Main Lab DEPARTMENT OF PATHOLOGY, [address] [place] [address] Michael Foster M.D. Director [facility] # [id number] 5 SEE RESULT BELOW Name: ALFREDO NICHOLS : [address]: Bandar Hilton MD Acct: [id number] Unit: [id number] AGE: 35 Location: [place] Re12/01/15 SEX: F Status: REG SDC SPEC: [id number] CRISSY: 12/01/15-819 [facility] [address]: Bandar Hilton MD REQ: [id number] RECD: 12/01/15 STATUS: BELLA BATRES DR: Aram Burton MD _ SOURCE: URINE SPDESC: ORDERED: Urine Culture Procedure Result Reported Site Urine Culture Final 12/02/15- 0857 ML No Growth (<1,000 CFU/mL) * ML - [facility]) . END OF REPORT * ML=Testing performed at Main Lab DEPARTMENT OF PATHOLOGY, [address] [place] [address] Michael Foster M.D. Director [facility] # [id number] 6 SEE RESULT BELOW Name: ALFREDO NICHOLS : [address]: Chau Langford MD Acct: [id number] Unit: [id number] AGE: 35 Location: ED Re11/28/15 SEX: F Status: DEP ER SPEC: [id number] CRISSY: 11/28/15-1055 [facility] DR: Kate PADRON REQ: [id number] RECD: 11/28/15-4 STATUS: BELLA BATRES DR: Aram Langford MD _ SOURCE: URINE SPDESC: ORDERED: Urine Culture Procedure Result Reported Site Urine Culture Final 11/29/15- 1300 ML Mixed ignacio; possible contamination. Suggest resubmission. * ML - MAIN LAB ([facility]) . END OF REPORT * ML=Testing performed at Main Lab DEPARTMENT OF PATHOLOGY, [address] [place] [address] Michael Foster M.D. Director [facility] # [id number] 7 [facility] Severe Sepsis and Septic Shock Management Bundle Measure requires all lactic acids initially measuring >2.0 mmol/L be repeated. 8 Because ethnic data is not always readily available, this report includes an eGFR for both -Americans and non- Americans. The National Kidney Disease Education Program (NKDEP) does not endorse the use of the MDRD equation for patients that are not between the ages of 18 and 70, are , have extremes of body size, muscle mass, or nutritional status, or are non- or non-. According to the National Kidney Foundation, irrespective of diagnosis, the stage of the disease is based on the level of kidney function: Stage Description GFR(mL/min/1.73 m(2)) 1 Kidney damage with normal or decreased GFR 90 2 Kidney damage with mild decrease in GFR 60-89 3 Moderate decrease in GFR 30-59 4 Severe decrease in GFR 15-29 5 Kidney failure <15 (or dialysis) 9 Acute inflammation: >10.00 10 <5.0 Negative 5.0 - 25.0 Indeterminate (Repeat testing recommended after 72 hours) >25.0 Positive Perimenopausal women can display HCG levels of up to 20 mIU/mL 11 <5.0 Negative 5.0 - 25.0 Indeterminate (Repeat testing recommended after 72 hours) >25.0 Positive Perimenopausal women can display HCG levels of up to 20 mIU/mL 12 <5.0 Negative 5.0 - 25.0 Indeterminate (Repeat testing recommended after 72 hours) >25.0 Positive Perimenopausal women can display HCG levels of up to 20 mIU/mL 13 If is still suspected, please repeat test after 48 to 72 hours. This test detects intact HCG only and is indicated for the early detection of . 14 Test Performed by: [place] [address] Line Installer: Nima Lafleur II, M.D., Ph.D. 15 SEE RESULT BELOW Name: ALFREDO NICHOLS Monisha : [address]: Nikunj Fuentes MD Acct: [id number] Unit: [id number] AGE: 35 Location: [facility] Re05/19/15 SEX: F Status: REG REF SPEC: [id number] CRISSY: 05/19/15-[address]: Nikunj Fuentes MD REQ: [id number] RECD: 05/19/15-1630 STATUS: SOUT _ ORDERED: IMAGE ANALYSIS, HPV/Thin Prep FINAL DIAGNOSIS Negative for Intraepithelial lesion or Malignancy A. Ectocervical/Endocervical Specimen Adequacy: Satisfactory of evaluation Transformation zone component identified Patient Information: HPV: High risk HPV RNA testing regardless of pap results. Actual Specimen Date: 05/19/15 Last Menstrual Date: 04/25/15 Date of Last Specimen: 04/17/12 Date Time Test Result Flag (u) Normal Range 05/19/15 0832 HPV RNA Negative Negative The high-risk HPV types detected by the assay include: 16, 18, 31, 33, 35, 39, 45, 51, 52, 56, 58, 59, 66, and 68. Signed (signature on file) Newton Mcclure 05/20/15 1417 This Pap test was evaluated with the assistance of the ThinPrep Test Imaging System. Due to cytologic findings at the special procedure technologist microscope, comprehensive manual rescreening by a Service Developer may be required. The Pap Smear is a screening test designed to aid in the detection of premalignant and malignant conditions of the uterine cervix. It is not a diagnostic procedure and should not be used as the sole means of detecting cervical cancer. Both false- positive and false- negative reports do occur. Depending on your risk status, a Pap smear should be obtained and evaluated every 1-3 years. END OF REPORT * ML=Testing performed at Main Lab DEPARTMENT OF PATHOLOGY, [address] [place] [id number] Michael Foster M.D. Director [facility] # [id number] 16 The high-risk HPV types detected by the assay include: 16, 18, 31, 33, 35, 39, 45, 51, 52, 56, 58, 59, 66, and 68. 17 RUN DATE: 04/18/12 [facility] LAB LIVE PAGE 1 RUN TIME: [address] [place] [address] Specimen Inquiry Name: ALFREDO LEONG : [address]: Gina KHAN,Nikunj Alfonso Acct: [id number] Unit: [id number] AGE: 32 Location: [facility] Re04/17/12 SEX: F Status: REG REF SPEC: [id number] CRISSY: 04/17/12-[address]: Gina KHAN, Nikunj ThorneLe REQ: [id number] RECD: 04/18/12 STATUS: MADY BATRES DR: _ ORDERED: IMAGE ANALYSIS Negative for Intraepithelial lesion or Malignancy A. Ectocervical/Endocervical Specimen Adequacy: Satisfactory of evaluation Transformation zone component identified Patient Information: HPV: Thin Layer Pap Test w/reflex to high risk HPV DNA testing when ASCUS Actual Specimen Date: 04/17/12 Last Menstrual Date: 03/27/12 Date of Last Specimen: 04/12/11 ?: N Post Menopausal?: N Hysterectomy?: N Signed (signature on file) OUMAR Hayes (ASCP) 04/18/12 1349 This Pap test was evaluated with the assistance of the [place] BundlePrep Test Imaging System. Due to cytologic findings at the special procedure technologist microscope, comprehensive manual rescreening by a Service Developer may be required. The Pap Smear is a screening test designed to aid in the detection of premalignant and malignant conditions of the uterine cervix. It is not a diagnostic procedure and should not be used as the sole means of detecting cervical cancer. Both false- positive and false- negative reports do occur. Depending on your risk status, a Pap smear shoudl be obtained and evaluated every 1-3 years. END OF REPORT * ML=Testing performed at Main Lab DEPARTMENT OF PATHOLOGY, [address] [place] [address] Michael Foster M.D. Director [facility] Permit #[id number] 18 ---- RUN DATE: 04/13/11 [facility] NMI LIVE PAGE 1 RUN TIME: 1531 Specimen Inquiry RUN USER: INTERFACE -- Name: ALFREDO LEONG Status: REG REF Re04/12/11 Age/Sex: 31/F Unit#: [id number] Location: [facility] : 79 -- Specimen: [id number] SOUT Spec Date: 04/12/[address]: Nikunj arana MD Spec Type: CYTOLOGY Received: 04/13/11-23 Copies to: SOURCE ECTOCERVICAL/ENDOCERVICAL Thin Prep with Reflex HPV Test PATIENT INFORMATION ACTUAL COLLECTION DATE: 04/12/11 PREVIOUS ABNORMAL PAP SMEARS No LAST MENSTRUAL PERIOD: 03/13/11 ADEQUACY OF SPECIMEN Satisfactory for evaluation * Transformation zone component identified * DIAGNOSIS NEGATIVE FOR INTRAEPITHELIAL LESION OR MALIGNANCY * Fungal organisms morphologically consistent with Jazzy species * This Pap test was evaluated with the assistance of the ThinPrep Pap Test Imaging System. The Pap Smear is a screening test designed to aid in the detection of premalign ant and malignant conditions of the uterine cervix. It is not a diagnostic procedure a nd should not be used as the sole means of detecting cervical cancer. Both false- positiv e and false-negative reports do occur. Depending on your risk status, a Pap smear sis uld be obtained and evaluated every one to three years. Initial evaluation performed by Jason FAUSTIN([facility]) 04/13/11 Final Interpretation electronically signed by: Jason FAUSTIN([facility]) 04/13/11 1531 -- -- DEPARTMENT OF PATHOLOGY, [address] [place] [address] [facility] Permit #[id number] Michael Foster M.D. Director Katty Rich M.D. Wellness Nurse Dir elsa -- 19 ---- RUN DATE: 10/17/09 [facility] NMI LIVE PAGE 1 RUN TIME: 1350 Specimen Inquiry RUN USER: INTERFACE -- Name: ALFREDO LEONG Status: REG REF Re10/16/09 Age/Sex: 29/F Unit#: [id number] Location: [facility] : 79 -- Specimen: [id number] Spec Date: 10/16/[address]: Nikunj arana MD Spec Type: CYTOLOGY Received: 10/17/093691 Copies to: SOURCE ECTOCERVICAL/ENDOCERVICAL Thin Prep with Reflex HPV Test PATIENT INFORMATION ACTUAL COLLECTION DATE: 10/16/09 PREVIOUS ABNORMAL PAP SMEARS No LAST MENSTRUAL PERIOD: 09/17/09 ADEQUACY OF SPECIMEN Satisfactory for evaluation * Transformation zone component identified * DIAGNOSIS NEGATIVE FOR INTRAEPITHELIAL LESION OR MALIGNANCY * Reactive cellular changes associated with * Inflammation (includes typical repair) * This Pap test was evaluated with the assistance of the [employer] Elements acquired by [employer] Pap Test Imaging System. Due to cytologic findings at the special procedure technologist microscope, comprehensive manual rescreening by a Service Developer was required. The Pap Smear is a screening test designed to aid in the detection of premalign ant and malignant conditions of the uterine cervix. It is not a diagnostic procedure a nd should not be used as the sole means of detecting cervical cancer. Both false- positiv e and false-negative reports do occur. Depending on your risk status, a Pap smear sis uld be obtained and evaluated every one to three years. Initial evaluation performed by Jim LE([facility]) 10/17/09 Final Interpretation electronically signed by: KATTY RICH 10/17/09 1350 -- DEPARTMENT OF PATHOLOGY, [address] [place] [address] [facility] Permit #[id number] Michael Foster M.D. Director Katty Rich M.D. Wellness Nurse Dir elsa -- 19 ---- RUN DATE: 10/15/08 [facility] NMI LIVE PAGE 1 RUN TIME: 1556 Specimen Inquiry RUN USER: INTERFACE -- Name: ALFREDO LEONG Status: REG REF Re10/14/08 Age/Sex: 28/F Unit#: [id number] Location: [facility] : 79 -- Specimen: [id number] Spec Date: 10/14/[address]: Nikunj arana MD Spec Type: CYTOLOGY Received: 10/15/08-1358 Copies to: SOURCE ECTOCERVICAL/ENDOCERVICAL Thin Prep with Reflex HPV Test PATIENT INFORMATION ACTUAL COLLECTION DATE: 10/14/08 PREVIOUS ABNORMAL PAP SMEARS No PATIENT HISTORY: Last menstrual period 09/25 ADEQUACY OF SPECIMEN Satisfactory for evaluation * Transformation zone component identified * DIAGNOSIS NEGATIVE FOR INTRAEPITHELIAL LESION OR MALIGNANCY * This Pap test was evaluated with the assistance of the ThinPrep Pap Test Imaging System. The Pap Smear is a screening test designed to aid in the detection of premalign ant and malignant conditions of the uterine cervix. It is not a diagnostic procedure a nd should not be used as the sole means of detecting cervical cancer. Both false- positiv e and false-negative reports do occur. Depending on your risk status, a Pap smear sis uld be obtained and evaluated every one to three years. Final Interpretation electronically signed by: Jason FAUSTIN([facility]) 10/15/08 1556 -- -- DEPARTMENT OF PATHOLOGY, [address] [place] [address] [facility] Permit #[id number] Michael Foster M.D. Director Katty Rich M.D. Wellness Nurse elsa -- 20 . A negative result does not preclude the presence of a C.trachomatis or N.gonorrhoeae infection because results are dependent on adequate specimen collection, absence of inhibitors, and sufficient rRNA to be detected. Test results may be affected by improper specimen collection, improper specimen storage, technical error, or specimen mixup. . 22 . A negative result does not preclude the presence of a C.trachomatis or N.gonorrhoeae infection because results are dependent on adequate specimen collection, absence of inhibitors, and sufficient rRNA to be detected. Test results may be affected by improper specimen collection, improper specimen storage, technical error, or specimen mixup. . 23 TEST PERFORMED BY: [employer]. [address] [place] [id number] 24 ---- RUN DATE: 08/04/06 [facility] NM LIVE PAGE 1 RUN TIME: 1332 Specimen Inquiry RUN USER: INTERFACE [id number] ALFREDO LEONG / <REG REF 07/29> ([id number]) Nikunj Hamilton MD -- Specimen: [id number] SOUT Spec Date: 07/29/[address]: Nikunj arana MD Spec Type: CYTOLOGY Received: 08/01/06-1400 Copies to: SOURCE ECTOCERVICAL/ENDOCERVICAL Thin Prep with Reflex HPV Test PATIENT INFORMATION ACTUAL COLLECTION DATE: 07/29/06 PREVIOUS ABNORMAL PAP SMEARS No LAST MENSTRUAL PERIOD: 06/30/06 DATE OF PRIOR SPECIMEN: 06/20/05 PATIENT HISTORY: Prior Unknown ADEQUACY OF SPECIMEN Satisfactory for evaluation * Transformation zone component identified * DIAGNOSIS NEGATIVE FOR INTRAEPITHELIAL LESION OR MALIGNANCY * The Pap Smear is a screening test designed to aid in the detection of premalign ant and malignant conditions of the uterine cervix. It is not a diagnostic procedure a nd should not be used as the sole means of detecting cervical cancer. Both false- positive and false-negative reports do occur. Depending on your risk status, a Pap smear sis uld be obtained and evaluated every one to three years. Final Interpretation electronically signed by: Jim LE([facility]) 08/04/06 -- -- DEPARTMENT OF PATHOLOGY, [address] [place] [address] [facility] Permit #[id number] Nima Hopkins II, M.D. Director Viv Wittctor -- Procedures Date Code Description Status 06/05/2018 68828 OB Ultrasound First Trimester Completed 05/22/2018 30097 OB Ultrasound First Trimester Completed 07/28/2017 92551525 Mammogram Completed 07/19/2017 60938 Ultrasound,Transvaginal Completed 12/01/2015 23964 Dilation & Curettage (D&C) Completed 06/05/2015 90407 Hysterosalpingogram Completed 11/07/2008 47915 Echography Transvaginal Completed 02/01/2005 59661 Echography Transvaginal Completed Encounters Type Date Location Provider Dx Diagnosis Office Visit 05/22/2018 [facility] Office Nikunj Fuentes, O36.80x0 w 8:00a M.D. inconclusive viability, unsp Office Visit 08/30/2017 [facility] Nikunj Fuentes, N97.0 Female infertility 9:00a M.D. 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 cyst, right side N97.0 Female infertility associated with anovulation Office Visit 07/12/2017 9:40a [facility] Office Nikunj Alfonso Z01.419 Encntr for break out worker Viv Fuentes exam (general) (routine) w/o abn findings N92.6 Irregular menstruation, unspecified Office Visit 06/29/2016 8:40a [facility] Nikunj Alfonso Z01.419 Encntr for break out worker clara Fuentes M.D. (general) (routine) w/o abn findings Office Visit 11/26/2015 2:20p [facility] Office Nupur Gordillo, O36.80x0 w ANP-C inconclusive viability, unsp R10.30 Lower abdominal pain, unspecified Office Visit 11/25/2015 1:40p [facility] Office Nupur Gordillo, O36.80x0 w ANP-C inconclusive viability, unsp Office Visit 05/19/2015 8:40a [facility] Office Nikunj Alfonso Z01.411 Encntr for break out worker clara Fuentes M.D. (general) (routine) w abnormal findings E28.2 Polycystic ovarian syndrome Office Visit 05/14/2014 9:40a [facility] Office Nikunj Alfonso V72.31 Routine Marva Fuentes M.D. Examination V26.9 Procreative Management Unspec V76.2 Screening Malignant Neoplasm Cervix Office Visit 05/08/2013 8:00a [facility] Nikunj Alfonso V72.31 Routine Marva Fuentes M.D. Examination V26.9 Procreative Management Unspec V76.2 Screening Malignant Neoplasm Cervix Office Visit 04/17/2012 11:00a [facility] Nikunj Alfonso V72.31 Routine Marva Fuentes M.D. Examination V76.2 Screening Malignant Neoplasm Cervix Office Visit 04/12/2011 9:40a [facility] Nikunj Alfonso V72.31 Routine Marva Fuentes M.D. 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 Examination V76.2 Screening Malignant Neoplasm Cervix V74.5 Screening Examination Venereal Disease 789.9 Abdomen & Pelvis Symptoms Other Office Visit 10/13/2007 9:00a [facility] Nikunj Alfonso V72.31 Routine Marva Fuentes M.D. Examination V76.2 Screening Malignant Neoplasm Cervix V76.10 Screening For Malignant Neoplasm Breast Office Visit 07/29/2006 9:00a [facility] Nikunj Alfonso V72.31 Routine Marva Fuentes M.D. Examination V77.1 Screening Diabetes Mellitus V76.2 Screening Malignant Neoplasm Cervix Office Visit 07/09/2005 1:00p [facility] Nikunj Alfonso V72.31 Routine Marva Fuentes M.D. Examination V76.2 Screening Malignant Neoplasm Cervix 628.9 Infertility Female Unspec Origin 256.4 Polycystic Ovaries Office Visit 02/01/2005 3:40p [facility] Nikunj Alfonso 620.2 Ovarian Cyst Other & Viv Fuentes Unspec Office Visit 07/01/2004 7:00a [facility] Nikunj Alfonso V26.4 Procreative Viv Fuentes Management General Counseling & Advice V72.31 Routine Printing Equipment Mechanic Examination Office Visit 07/03/2003 8:00a [facility] Nikunj Alfonso V72.3 Examination Viv Fuentes Gynecological Plan of Treatment Future Appointment(s):08/01/2018 8:40 am - Nikunj Fuentes M.D. at [facility]06/05/2018 - Nikunj Fuentes M.D.Z01.818 Encounter for other preprocedural examinationNew Medication:Ibuprofen 600 mg - take one tab by mouth every 6 hours as needed pain
--- OUTSIDE RECORDS SUMMARY | 2018-06-13 19:39 | XMS REPORT | Continuity of Care Document ---
:1980 External Reference #:[id number] Author Name Nikunj Fuentes M.D. Address [address] [place] [address] Care Team Providers Name Role Phone Dr. Aram Burton Primary Care Physician Unavailable Payers Type Date Identification Numbers Payment Provider Subscriber Effective: Policy Number: [id number] Joel BC/BS Alfredo J Perla 2005 [facility] Expires: 2009 PayID: [id number] [facility] [address] ANA LUISA [place] [address] Effective: 2010 Policy Number: Joel VASQUEZ/BS [place] Alfredo J Perla [id number] [place] Expires: 2013 PayID: [id number] [facility] [address] ANA LUISA [place] [address] Effective: 2013 Policy Number: Joel VASQUEZ/BS [place] Alfredo J Perla [id number] [place] PayID: [id number] [facility] [address] ANA LUISA [place] [address] Advance Directives Description No Information Available Problems [...] Paternal Grandfather Diabetes Paternal Grandmother due to SC () Paternal Grandmother Diabetes Maternal Grandfather due to SC () Maternal Grandfather Diabetes Maternal Grandmother due to Ovarian Cancer () Social History Type Date Description Comments Sex Unknown Education Highest level of education completed is 2 years of college Marital Status Patient is Living Situation Lives with spouse Diet Diet is healthy and well balanced Sleep Typically sleeps 7 hours a night 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 2018 Progesterone 07/19/ Hx Capsules 200mg 12caps 1 by mouth Nikunj Alfonso Micronized 2017 - every day x Gelber, days M.D. 2017 Letrozole 07/19/ Hx Tablets 2.5mg 5tabs 1 by mouth Nikunj Alfonso 2018 - every day Gelber, 08/30/ days 3-7 M.D. 2017 Prednisone 07/19/ Hx Tablets 5mg 60tabs 1 po qd N97.0 Nikunj Alfonso 2018 - Gelber, 08/30/ M.D. 2018 No Active 06/29/ Hx Unknown Medications 2016 - 2017 Ibuprofen 11/30/ Hx Tablets 600mg 24tabs 1 by mouth Dvora 2015 - q6 hours as [place], 06/29/ needed M.D. 2016 Oxycodone-Aceta 11/30/ Hx Tablets 5-325mg 12tabs 1 tablet by Dvora minophen 2015 - mouth q4 [place]way, 07/11/ hours as M.D. 2016 needed for strong pain Zofran 11/30/ Hx Tablets 4mg 8tabs one tablet Dvora 2016 - po q6 hours Yobani, 07/11/ prn nausea M.DLe 2015 Diclegis 10/28/ Hx Tablets DR 10-10mg 60tabs take 2 Lizzie 2015 - tablets by Hendrickson, 07/11/ mouth at CN 2016 bedtime Letrozole 06/24/ Hx Tablets 2.5mg 10tabs 1 by mouth Nikunj Alfonso 2015 - every day Gelber, 10/28/ days 3-7 M.D. 2015 Doxycycline 05/27/ Hx Capsules 100mg 6caps 1 by mouth Caterina Monohydrate 2014 - twice a day Shirley, 10/28/ for 3 days/ 2015 start day before procedure Dha 05/08/ Hx Capsules 200mg 120cap 1 PO qd Nikunj Alfonso 2012 - s Geligor, 06/29/ M.DLe 2016 Clotrimazole-7 04/15/ Hx Cream 1% 1Tube 1 Nikunj Alfonso 2010 - applicator Gina, 03/01/ qhs x 7 M.DLe 2011 None / Hx Unknown 0000 - 2012 Multivitamins / Hx Unknown 0000 - 2012 Prednisone / Hx Unknown 0000 - 2017 Medications Administered in Office Medication [...] Available Vital Signs Date Vital Result Comment 05/22/2018 8:06am BP Systolic 126 mmHg BP Diastolic 76 mmHg Height 61 inches 5'1" Weight 150.00 lb BMI (Body Mass Index) 28.3 kg/m2 Last Menstrual Period [id number] 2 Parity 0 08/30/2017 8:53am BP Systolic 108 mmHg BP Diastolic 64 mmHg Height 61 inches 5'1" Weight 146.00 lb BMI (Body Mass Index) 27.6 kg/m2 Last Menstrual Period 1415191 1 Parity 0 07/19/2017 11:29am BP Systolic 128 mmHg BP Diastolic 78 mmHg Height 61 inches 5'1" Weight 144.00 lb BMI (Body Mass Index) 27.2 kg/m2 Last Menstrual Period [id number] 07/12/2017 9:24am BP Systolic 120 mmHg BP Diastolic 86 mmHg Height 61 inches 5'1" Weight 143.00 lb BMI (Body Mass Index) 27.0 kg/m2 Last Menstrual Period 1999905 1 Parity 0 06/29/2016 8:09am BP Systolic 122 mmHg BP Diastolic 72 mmHg Height 61 inches 5'1" Weight 144.00 lb BMI (Body Mass Index) 27.2 kg/m2 Last Menstrual Period 2680752 1 Parity 0 12/10/2015 8:22am Body Temperature 97.7 F Height 61 inches 5'1" Weight 151.00 lb BMI (Body Mass Index) 28.5 kg/m2 11/26/2015 3:13pm BP Systolic 118 mmHg BP Diastolic 72 mmHg Body Temperature 98.6 F Heart Rate 72 /min Height 61 inches 5'1" Weight 153.00 lb BMI (Body Mass Index) 28.9 kg/m2 Last Menstrual Period [id number] 1 11/25/2015 1:33pm BP Systolic 116 mmHg BP Diastolic 78 mmHg Height 61 inches 5'1" Weight 153.00 lb BMI (Body Mass Index) 28.9 kg/m2 Last Menstrual Period 2936274 1 Parity 0 05/19/2015 8:11am BP Systolic 120 mmHg BP Diastolic 82 mmHg Height 61 inches 5'1" Weight 147.00 lb BMI (Body Mass Index) 27.8 kg/m2 Last Menstrual Period 0653444 0 Parity 0 05/14/2014 9:20am BP Systolic 108 mmHg BP Diastolic 72 mmHg Height 61 inches 5'1" Weight 144.00 lb BMI (Body Mass Index) 27.2 kg/m2 Last Menstrual Period 8408079 0 Parity 0 05/08/2013 7:46am BP Systolic 108 mmHg BP Diastolic 64 mmHg Height 60.5 inches 5'0.50" Weight 140.00 lb BMI (Body Mass Index) 26.9 kg/m2 Last Menstrual Period 6103431 0 04/17/2012 10:57am BP Systolic 110 mmHg BP Diastolic 72 mmHg Height 61 inches 5'1" Weight 132.00 lb BMI (Body Mass Index) 24.9 kg/m2 Last Menstrual Period 4380449 0 Parity 0 04/12/2011 9:27am BP Systolic 112 mmHg BP Diastolic 70 mmHg Height 61.5 inches 5'1.50" Weight 128.00 lb BMI (Body Mass Index) 23.8 kg/m2 Last Menstrual Period 0931007 0 Parity 0 10/16/2009 10:12am BP Systolic 940 mmHg Height 61.5 inches 5'1.50" Weight 137.00 lb BMI (Body Mass Index) 25.5 kg/m2 Last Menstrual Period 9236601 10/14/2008 8:06am BP Systolic 112 mmHg BP Diastolic 70 mmHg Height 61.5 inches 5'1.50" Weight 139.00 lb BMI (Body Mass Index) 25.8 kg/m2 Last Menstrual Period 1109004 0 10/13/2007 9:00am BP Systolic 108 mmHg BP Diastolic 72 mmHg Height 61.5 inches 5'1.50" Weight 147.00 lb BMI (Body Mass Index) 27.3 kg/m2 Last Menstrual Period 0920728 0 07/29/2006 9:08am BP Systolic 100 mmHg BP Diastolic 58 mmHg Height 61.5 inches 5'1.50" Weight 126.00 lb BMI (Body Mass Index) 23.4 kg/m2 Last Menstrual Period 9575960 0 Results Test Date Facility Test Result H/L Range Note Laboratory test 05/22/2018 [facility] Progesterone <pending> [place] [address] [phone] Laboratory test 06/29/2016 [facility] Cytology SEE RESULT 1 [place] [address] BELOW [phone] Human Papilloma Virus Rna Negative N Negative 2 Laboratory test 12/01/2015 [facility] Surgical SEE RESULT 3 [place] [address] Pathology BELOW [phone] Urine Culture And 12/01/2015 [facility] Urine Culture SEE RESULT 4 [place] [address] BELOW [phone] Urine Culture And 11/28/2015 [facility] Urine Culture SEE RESULT 5 [place] [address] BELOW [phone] Laboratory test 11/28/2015 [facility] Lipase 29 U/L N 11.0- [place] [address] 82.0 [phone] C Reactive Protein 1.08 mg/L N < 5.00 6 HCG 54953.00 mIU/mL N 7 CBC Auto Diff 11/28/2015 [facility] White Blood 10.2 10^3/uL N 3.5-10.8 [place] [address] Count [phone] Red Blood Count 4.70 10^6/uL N 4.0-5.4 [...] Nucleated Red Blood Cells % 0 N Laboratory test 11/28/2015 [facility] Lactic Acid 1.3 mmol/L N 0.5-2.0 8 [place] [address] [phone] Protime 11/28/2015 [facility] Inr 0.98 N 0.89-1.11 [place] [address] [phone] Laboratory test 11/28/2015 [facility] PTT (Aptt) 28.6 seconds N 26.0-36.3 finding [place], [place] 3893388 [phone] Comp Metabolic 11/28/2015 [facility] Sodium 135 mmol/L N 133- 145 [place] [address] [phone] Potassium 3.3 mmol/L Low 3.5-5.0 Chloride 104 [...] 103.1 N >60 Egfr 132.6 N >60 9 Urinalysis Profile 11/28/2015 [facility] Urine Color Yellow N [place], [place] 9369588 [phone] Urine Appearance Cloudy N Urine Specific Beatty 1.018 N 1.010-1.030 Urine pH 6.0 N [...] Urine Squamous Epithelial Cell Present Abnormal Absent Laboratory test 11/26/2015 [facility] HCG 53923.00 N 10 [place] [address] mIU/mL [phone] Type And Screen 11/25/2015 [facility] Patient [place] [address] Type [phone] Antibody Screen NEGATIVE N Laboratory test 11/25/2015 [facility] HCG 36635.00 N 11 [place] [address] mIU/mL [phone] Laboratory test 06/05/2015 [facility] Negative N Negative 12 [place] [address] (HCG) Urine [phone] Laboratory test 05/19/2015 [facility] Cytology SEE RESULT 13 [place] [address] BELOW [phone] Human Papilloma Virus Rna Negative N Negative 14 Thyroid 05/19/2015 [facility] Thyroid Stim 0.8 mIU/L N 0.3- 4.2 15 [place] [address] Hormone [place] [phone] Laboratory test 04/17/2012 [facility] Cytology RUN DATE: 16 [place] [address] SEE [phone] NOTE> Laboratory test 04/12/2011 [facility] Cytology 17 [place] [address] ---- <SEE [phone] NOTE> Laboratory test 10/16/2009 [facility] Cytology 18 [place] [address] ---- <SEE [phone] NOTE> Laboratory test 10/14/2008 [facility] Cytology 19 [place] [address] ---- <SEE [phone] NOTE> Laboratory test 10/14/2008 [facility] TSH 0.63 MIU/ML 0.34- 5.60 [place] [address] [phone] GC/ZHL On Thin 10/14/2008 [facility] GC On Thin NEGATIVE Negative 20 [place] [address] Prep Vial [phone] CHL On Thin Prep Vial NEGATIVE Negative 21 Laboratory test finding 08/04/2006 [facility] Glucose 79 mg/dL 70-105 [place], [place] 6[address]78 [phone] Insulin 7.9 MU/L 3.0-28.0 22 TSH 0.70 MIU/ML 0.34-5.60 Laboratory 07/29/2006 [facility] Cytology 23 [place] [address] <SEE NOTE> [phone] Laboratory 07/01/2004 [facility] Rubella [place] [address] Screen [phone] 1 SEE RESULT BELOW Name: ALFREDO NICHOLS : [address]: Nikunj Fuentes MD Acct: [id number] Unit: [id number] AGE: 36 Location: [facility] Re06/29/16 SEX: F Status: REG REF SPEC: [id number] CRISSY: 06/29/[address] [facility] [address]: Nikunj Fuentes MD REQ: [id number] RECD: 06/29/169502 STATUS: SOUT _ ORDERED: IMAGE ANALYSIS, HPV/Thin Prep COMMENTS: [id number] FINAL DIAGNOSIS Negative for Intraepithelial lesion or Malignancy A. Ectocervical/Endocervical Specimen Adequacy: Satisfactory of evaluation Transformation zone component identified Patient Information: HPV: High risk HPV RNA testing regardless of pap results. Actual Specimen Date: 06/29/16 Last Menstrual Date: 06/02/16 Date of Last Specimen: 05/21/15 Date Time Test Result Flag (u) Normal Range 06/29/16 0833 HPV RNA Negative Negative The high-risk HPV types detected by the assay include: 16, 18, 31, 33, 35, 39, 45, 51, 52, 56, 58, 59, 66, and 68. Signed (signature on file) OUMAR Cruz (ASCP) 06/30 1422 This Pap test was evaluated with the assistance of the Expedit.usPrep Test Imaging System. Due to cytologic findings at the associate professor of english microscope, comprehensive manual rescreening by a Multimedia Developer may be required. The Pap Smear [...] performed at Main Lab DEPARTMENT OF PATHOLOGY, [address] [place] [address] Michael Foster M.D. Director [facility] # [id number] 2 The high-risk HPV types detected by the assay include: 16, 18, 31, 33, 35, 39, 45, 51, 52, 56, 58, 59, 66, and 68. 3 SEE RESULT BELOW Name: MIREYA NICHOLSMEHRDAD Bearden : [address]: Bandar Hilton MD Acct: [id number] Unit: [id number] AGE: 35 Location: [place] Re12/01/15 SEX: F Status: REG [facility] SPEC: [id number] CRISSY: 12/01/[address] [facility] [address]: Bandar Hilton MD REQ: [id number] RECD: 12/01/15-1037 STATUS: SOUT _ ORDERED: LEVEL [...] villi are identified. No parts are identified. Supply Chain Systems Manager sections, two cassettes. Signed (signature on file) Michael Foster MD 1302 END OF REPORT * ML=Testing performed at Main Lab DEPARTMENT OF PATHOLOGY, [address] [place] [address] Michael Foster M.D. Director [facility] # [id number] 4 SEE RESULT BELOW Name: ALFREDO NICHOLS : [address]: Bandar Hilton MD Acct: [id number] Unit: [id number] AGE: 35 Location: [place] Re12/01/15 SEX: F Status: REG SDC SPEC: [id number] CRISSY: 12/01/15-[address] [facility] [address]: Bandar Hilton MD REQ: [id number] RECD: 12/01/15-1037 STATUS: BELLA BATRES DR: Aram Burton MD _ SOURCE: URINE SPDESC: ORDERED: Urine Culture Procedure Result Reported Site Urine Culture Final 12/02/15- 0857 ML No Growth (<1,000 CFU/mL) * ML - MAIN LAB (PSC1) . END OF REPORT * ML=Testing performed at Main Lab DEPARTMENT OF PATHOLOGY, [address] [place] [address] Michael Foster M.D. Director [facility] # [id number] 5 SEE RESULT BELOW Name: ALFREDO NICHOLS : [address]: Chau Langford MD Acct: [id number] Unit: [id number] AGE: 35 Location: ED Re11/28/15 SEX: F Status: DEP ER SPEC: [id number] CRISSY: 11/28/15-[address]: Kate PADRON REQ: [id number] RECD: 11/28/15 STATUS: BELLA BATRES DR: Aram Langford MD _ SOURCE: URINE SPDESC: ORDERED: Urine Culture Procedure Result Reported Site Urine Culture Final 11/29/15- 1300 ML Mixed ignacio; possible contamination. Suggest resubmission. * ML - MAIN LAB (PSC1) . END OF REPORT * ML=Testing performed at Main Lab DEPARTMENT OF PATHOLOGY, [address], [place], [place] [address] Michael Foster M.D. Director [facility] # [id number] 6 Acute inflammation: >10.00 7 <5.0 Negative 5.0 - 25.0 Indeterminate (Repeat testing recommended after 72 hours) >25.0 Positive Perimenopausal women can display HCG levels of up to 20 mIU/mL 8 [facility] Severe Sepsis and Septic Shock Management Bundle Measure requires all lactic acids initially measuring >2.0 mmol/L be repeated. 9 Because ethnic data is not always readily [...] 15-29 5 Kidney failure <15 (or dialysis) 10 <5.0 Negative 5.0 - 25.0 Indeterminate (Repeat testing recommended after 72 hours) >25.0 Positive Perimenopausal women can display HCG levels of up to 20 mIU/mL 11 <5.0 Negative 5.0 - 25.0 Indeterminate (Repeat testing recommended after 72 hours) >25.0 Positive Perimenopausal women can display HCG levels of up to 20 mIU/mL 12 If is still suspected, please repeat test after 48 to 72 hours. This test detects intact HCG only and is indicated for the early detection of . 13 SEE RESULT BELOW Name: ALFREDO NICHOLS : [address]: Nikunj Fuentes MD Acct: [id number] Unit: [id number] AGE: 35 Location: [facility] Re05/19/15 SEX: F Status: REG REF SPEC: [id number] CRISSY: 05/19/[address]: Nikunj Fuentes MD REQ: [id number] RECD: 05/19/15 STATUS: SOUT _ ORDERED: IMAGE ANALYSIS, HPV/Thin [...] Signed (signature on file) Newton Mcclure 05/20/15 1415 This Pap test was evaluated with the assistance of the Expedit.usPrep Test Imaging System. Due to cytologic findings at the associate professor of english microscope, comprehensive manual rescreening by a Multimedia Developer may be required. The Pap Smear [...] performed at Main Lab DEPARTMENT OF PATHOLOGY, [facility] [place], [place] [address] Michael Foster M.D. Director [facility] # [id number] 14 The high-risk HPV types detected by the assay include: 16, 18, 31, 33, 35, 39, 45, 51, 52, 56, 58, 59, 66, and 68. 15 Test Performed by: [address] [address] Mica Plate Layer: Nima Lafleur II, M.D., Ph.D. 16 RUN DATE: 04/18/12 [facility] LAB LIVE PAGE 1 RUN TIME: 1443 [facility] [address] [place], [place] [address] Specimen Inquiry Name: SALOALFREDO : [address]: Nikunj Fuentes MD Acct: [id number] Unit: [id number] AGE: 32 Location: [facility] Re04/17/12 SEX: F Status: REG REF SPEC: [id number] CRISSY: 04/17/12-[address]: Nikunj Fuentes MD REQ: [id number] RECD: 04/18/12 STATUS: MADY BATRES DR: _ [...] (signature on file) OUMAR Hayes (ASCP) 04/18/12 5364 This Pap test was evaluated with the assistance of the ThinPrep Test Imaging System. Due to cytologic findings at the associate professor of english microscope, comprehensive manual rescreening by a Multimedia Developer may be required. The Pap Smear [...] performed at Main Lab DEPARTMENT OF PATHOLOGY, [address] [place] [address] Michael Foster M.D. [facility] Permit #[id number] 17 ---- RUN DATE: 04/13/11 [facility] NMI LIVE PAGE 1 RUN TIME: 1531 Specimen Inquiry RUN USER: INTERFACE -- Name: ALFREDO LEONG Status: REG REF Re04/12/11 Age/Sex: 31/F Unit#: [id number] Location: [facility] : [birth year] -- Specimen: [id number] SOUT Spec Date: 04/12/[address]: Nikunj arana MD Spec Type: CYTOLOGY Received: 04/13/11 Copies to: SOURCE ECTOCERVICAL/ENDOCERVICAL Thin Prep with [...] three years. Initial evaluation performed by Jason FAUSTIN(ASCP) 04/13/11 Final Interpretation electronically signed by: Jason FAUSTIN(ASCP) 04/13/11 1531 -- -- DEPARTMENT OF PATHOLOGY, [address] [place] [address] [facility] Permit #[id number] Viv Witt M.D. Flat Bed Knitter Dir elsa -- 18 ---- RUN DATE: 10/17/09 [facility] NMI LIVE PAGE 1 RUN TIME: 1350 Specimen Inquiry RUN USER: INTERFACE -- Name: ALFREDO LEONG Status: REG REF Re10/16/09 Age/Sex: 29/F Unit#: [id number] Location: [facility] : [birth year] -- Specimen: [id number] SOURita Spec Date: 10/16/[address]: Nikunj arana MD Spec Type: CYTOLOGY Received: 10/17/09-933 Copies to: SOURCE ECTOCERVICAL/ENDOCERVICAL Thin Prep with [...] was evaluated with the assistance of the Expedit.usPrep Pap Test Imaging System. Due to cytologic findings at the associate professor of english microscope, comprehensive manual rescreening by a Multimedia Developer was required. The Pap Smear is [...] RICH 10/17/09 1350 -- DEPARTMENT OF PATHOLOGY, [address] [place] [address] [facility] Permit #[id number] Michael Foster M.D. Director Katty Rich M.D. Flat Bed Knitter Dir elsa -- 18 ---- RUN DATE: 10/15/08 [facility] NMI LIVE PAGE 1 RUN TIME: 1556 Specimen Inquiry RUN USER: INTERFACE -- Name: ALFREDO LEONG Status: REG REF Re10/14/08 Age/Sex: 28/F Unit#: [id number] Location: [facility] : [birth year] -- Specimen: [id number] SOUT Spec Date: 10/14/[address]: Nikunj arana MD Spec Type: CYTOLOGY [...] was evaluated with the assistance of the Expedit.usPrep Pap Test Imaging System. The Pap Smear [...] years. Final Interpretation electronically signed by: Jason FAUSTIN(ASC) 10/15/08 1556 -- -- DEPARTMENT OF PATHOLOGY, [address] [place] [address] [facility] Permit #[id number] Michael Foster M.D. Director Katty Rich M.D. Flat Bed Knitter Dir elsa -- 20 . A negative result does not preclude the presence of a C.trachomatis or N.gonorrhoeae infection because results are dependent on adequate specimen collection, absence of inhibitors, and sufficient rRNA to be detected. Test results may be affected by improper specimen collection, improper specimen storage, technical error, or specimen mixup. . 21 . A negative result does not preclude the presence of a C.trachomatis or N.gonorrhoeae infection because results are dependent on adequate specimen collection, absence of inhibitors, and sufficient rRNA to be detected. Test results may be affected by improper specimen collection, improper specimen storage, technical error, or specimen mixup. . 22 TEST PERFORMED BY: [employer] [address] [place] [address] 23 ---- RUN DATE: 08/04/06 [facility] NMI LIVE PAGE 1 RUN TIME: 1332 Specimen Inquiry RUN USER: INTERFACE [id number] MIREYA LEONGCI <REG REF 07/29> ([id number]) YOSELYN Fuentes MD,Nikunj Alfonso -- Specimen: [id number] SOUT Spec Date: 07/29/[address]: Nikujn arana MD Spec Type: CYTOLOGY Received: 08/01/06-1400 [...] years. Final Interpretation electronically signed by: Jim LE(ASCP) 08/04/06 -- -- DEPARTMENT OF PATHOLOGY, [address] [place] [address] [facility] Permit #[id number] Nima Hopkins II, M.D. Director Viv Witt irector -- Procedures Date Code Description Status 05/22/2018 13488 OB Ultrasound First Trimester Completed 07/28/2017 [id number] Mammogram Completed 07/19/2017 01617 Ultrasound,Transvaginal Completed 12/01/2015 82684 Dilation & Curettage (D&C) Completed 06/05/2015 59583 Hysterosalpingogram Completed 11/07/2008 90642 Echography Transvaginal Completed 02/01/2005 98437 Echography Transvaginal Completed Encounters Type Date Location Provider Dx Diagnosis Office Visit 05/22/2018 [facility] Nikunj Fuentes, O36.80x0 w 8:00a M.D. inconclusive viability, unsp Office Visit 08/30/2017 [facility] Nikunj Fuentes, N97.0 Female infertility 9:00a M.D. 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 cyst, right side N97.0 Female infertility associated with anovulation Office Visit 07/12/2017 9:40a [facility] Office Nikunj Alfonso Z01.419 Encntr for marva Fuentes M.D. exam (general) (routine) w/o abn findings N92.6 Irregular menstruation, unspecified Office Visit 06/29/2016 8:40a [facility] Office Nikunj Alfonso Z01.419 Encntr for phosphatic fertilizer supervisor clara Fuentes M.D. (general) (routine) w/o abn findings Office Visit 11/26/2015 2:[facility] Nupur Gordillo, O36.80x0 w ANP-C inconclusive viability, unsp R10.30 Lower abdominal pain, unspecified Office Visit 11/25/2015 1:40p [facility] Nupur [place], O36.80x0 w ANP-C inconclusive viability, unsp Office Visit 05/19/2015 8:40a [facility] Office Nikunj Alfonso Z01.411 Encntr for phosphatic fertilizer supervisor clara Fuentes M.D. (general) (routine) w abnormal findings E28.2 Polycystic ovarian syndrome Office Visit 05/14/2014 9:40a [facility] Office Nikunj Alfonso V72.31 Routine Marva Fuentes M.D. Examination V26.9 Procreative Management Unspec V76.2 Screening Malignant Neoplasm Cervix Office Visit 05/08/2013 8:00a [facility] Office Nikunj Alfonso V72.31 Routine Marva Fuentes M.D. Examination V26.9 Procreative Management Unspec V76.2 Screening Malignant Neoplasm Cervix Office Visit 04/17/2012 11:00a [facility] Office Nikunj Alfonso V72.31 Routine Marva Fuentes M.D. Examination V76.2 Screening Malignant Neoplasm Cervix Office Visit 04/12/2011 9:40a [facility] Office Nikunj Alfonso V72.31 Routine Marva Fuentes M.D. Examination V76.2 Screening Malignant Neoplasm Cervix Office Visit 10/16/2009 9:40a [facility] Office Nikunj Alfonso V72.31 Routine Marva Fuentes M.D. Examination V16.3 History Family Malignant Neoplasm Breast V76.2 Screening Malignant Neoplasm Cervix Office Visit 10/14/2008 8:20a [facility] Office Nikunj Alfonso V72.31 Routine Marva Fuentes M.D. Examination V76.2 Screening Malignant Neoplasm Cervix V74.5 Screening Examination Venereal Disease 789.9 Abdomen & Pelvis Symptoms Other Office Visit 10/13/2007 9:00a [facility] Office Nikunj Alfonso V72.31 Routine J2Ee Developer Viv Fuentes Examination V76.2 Screening Malignant Neoplasm Cervix V76.10 Screening For Malignant Neoplasm Breast Office Visit 07/29/2006 9:00a [facility] [facility] Nikunj Alfonso V72.31 Routine J2Ee Developer Viv Fuentes Examination V77.1 Screening Diabetes Mellitus V76.2 Screening Malignant Neoplasm Cervix Office Visit 07/09/2005 1:00p [facility] Office Nikunj Alfonso V72.31 Routine J2Ee Developer Viv Fuentes Examination V76.2 Screening Malignant Neoplasm Cervix 628.9 Infertility Female Unspec Origin 256.4 Polycystic Ovaries Office Visit 02/01/2005 3:40p [facility] Office Nikunj Alfonso 620.2 Ovarian Cyst Other & Viv Fuentes Unspec Office Visit 07/01/2004 7:00a [facility] Office Nikunj Alfonso V26.4 Procreative Viv Fuentes Management General Counseling & Advice V72.31 Routine J2Ee Developer Examination Office Visit 07/03/2003 8:00a [facility] Nikunj Alfonso V72.3 Examination Viv Fuentes Gynecological Plan of Treatment Future Appointment(s):06/05/2018 2:00 pm - Nikujn Fuentes M.D. at [facility]06/05/2018 1:30 pm - Ultrasounds at [facility]08/01/2018 8:40 am - Nikunj Fuentes M.D. at [facility]05/22/2018 - Nikunj Fuentes M.D.[id number] with inconclusive viability, not applicable or unspecifiedComments:currently viable 6 weeks by sonocheck progesterone level
[2018-06-13] MEDS ORDERED: DOXYcycline IV* 100 MG in NS 0.9% 250 ML* 250 ML IVPB ONE (20:22)
[2018-06-13] MEDS ORDERED: Chloroprocaine 2%* 20 ML VIAL ONE (20:50)
[2018-06-13] MEDS ORDERED: Lactated Ringers 1000 ML Bag* 1,000 ML IV ONE (21:00)
[2018-06-13] MEDS ORDERED: Clindamycin 900 MG/D5W BAG(*) 900 MG/50 ML BAG IVPB ONE (21:10)
[2018-06-13] MEDS ORDERED: Ondansetron INJ* 2 MG/ML VIAL ONE ×2 (21:23→23:21)
[2018-06-13] MEDS ORDERED: Dexamethasone IV* 4 MG/ML 1 ML (4 MG) ONE (21:23)
[2018-06-13] MEDS ORDERED: Ketorolac INJ* 30 MG/ML 1 ML VIAL ONE (21:23)
[2018-06-13] MEDS ORDERED: Propofol* 10 MG/ML 20 ML BTL ONE (21:34)
[2018-06-13] MEDS ORDERED: OXYTOCIN* 10 UNITS/ML 1 ML VIAL ONE (21:39)
[2018-06-13] MEDS ORDERED: Silver Nitrate/Potassium Nitr* 1 EA STICK ONE (21:40)
[2018-06-13] MEDS ORDERED: Ondansetron INJ* 2 MG/ML VIAL IV PRN (21:51)
[2018-06-13] MEDS ORDERED: Acetaminophen TAB* 325 MG PO PRN (21:51)
[2018-06-13] MEDS ORDERED: Naloxone* 0.4 MG/ML 1 ML VIAL IV PRN (21:51)
[2018-06-13] MEDS ORDERED: Scopolamine 1.5 mg* PATCH TRANSDERM PRN (21:51)
[2018-06-13] MEDS ORDERED: DiMENhydriNATE IV* 50 MG/ML VIAL IV PUSH PRN (21:51)
[2018-06-13] MEDS ORDERED: Ibuprofen TAB* 600 MG PO PRN (22:10)
[2018-06-13] MEDS ORDERED: Acetaminophen IV 1GM/100ML * 100 ML ONE (22:26)
--- NOTE | 2018-06-13 23:12 | OP ---
DATE OF OPERATION: 06/13/18 [facility] DATE OF : 78. SURGEON: Nikunj Fuentes MD. FUMIGATOR AND STERILIZER: None. ANESTHESIA: Spinal. PRE-OP DIAGNOSIS: Missed , retained products of conception. POST-OP DIAGNOSIS: Missed , retained products of conception. OPERATIVE PROCEDURE: D and C. ESTIMATED BLOOD LOSS: 50 cc. SPECIMEN: Includes products of conception and decidua. FINDINGS: Minimal tissue obtained. DESCRIPTION OF PROCEDURE: The patient identified, procedure identified as a D and C. The patient was taken to the operating room, prepped and draped in the usual fashion in the dorsal lithotomy position under spinal anesthesia. Two single-tooth tenaculums were placed on the anterior lip of the cervix and cervix was easily dilated up to a #31 Galvan dilator. The #10 suction curette was inserted and suction curettage with a small amount of tissue obtained. The sharp curette was inserted and sharp curettage performed until a gritty sensation was felt throughout the circumference. The polyp forceps were inserted and no further tissue is obtained using this. The sharp curette was inserted again. No further tissue was obtained. Decision at this point was made to terminate the procedure and all instruments removed from vagina. Instruments and sponges removed from the vagina and the patient returned to the recovery room in stable condition. All sponge and instruments counts were correct. [id number]/CPS #: [id number] MTDD
[2018-06-13] MEDS ORDERED: fentaNYL* 50 MCG/ML 2 ML VIAL (100 MCG VIAL) ONE (23:47)
[2018-06-13] MEDS: fentaNYL* 50 MCG/ML 2 ML VIAL (100 MCG VIAL) IV PRN ×3 (23:50→23:55)
[2018-06-14 00:02] VITALS: BP 112/71
[2018-06-14] MEDS: fentaNYL* 50 MCG/ML 2 ML VIAL (100 MCG VIAL) IV PRN (00:02)
[2018-06-16] MEDS ORDERED: Scopolamine PATCH Remove* 1 NOTE MISC PATCH OFF ONE (21:54)
== END 2018-06-14 00:10 | disposition home or self-care (01) ==
LOC: ED 18:13 → OR 21:39
PROVIDERS: ATTEND Obstetrics & Gynecology
DX: N99.821 Postprocedural hemorrhage of a genitourinary system organ or structure following other procedure (principal); Z98.890 Other specified postprocedural states; O02.1 Missed abortion
CPT/HCPCS: 36415; 76830; 80053; 85025; 86850; 86900; 86901; 88305; 99285; A9270-GY; J1100; J1885; J2400; J2405; J2590; J2704; J3010

== ENCOUNTER 2018-06-14 16:39 | Emergency (ER) | payer BC ==
--- OUTSIDE RECORDS SUMMARY | 2018-06-14 17:10 | XMS REPORT | Continuity of Care Document ---
:1980 External Reference #:[id number] Author Name Nikunj Fuentes M.D. Address [address] [facility] [place] [address] Care Team Providers Name Role Phone Dr. Aram Burton Primary Care Physician Unavailable Payers Type Date Identification Numbers Payment Provider Subscriber Effective: Policy Number: [id number] Joel BC/BS Alfreod J Perla [address] [facility] Expires: 2009 PayID: [id number] [facility] [address] [place] [address] Effective: 2010 Policy Number: Joel VASQUEZ/BS [facility] [place] [id number] [place] Expires: 2013 PayID: [id number] [facility] [address] [place] [address] Effective: 2013 Policy Number: Joel VASQUEZ/BS [facility] [place] [id number] [place] PayID: [id number] [facility] [address] [place] [address] Advance Directives Description No Information Available Problems [...] Paternal Grandfather Diabetes Paternal Grandmother due to DC () Paternal Grandmother Diabetes Maternal Grandfather due to DC () Maternal Grandfather Diabetes Maternal Grandmother due to Ovarian Cancer () Social History Type Date Description Comments Sex Unknown Education Highest level of education completed is 2 years of college Marital Status Patient is Living Situation Lives with spouse Diet Diet is healthy and well balanced Sleep Typically sleeps 7 hours a night 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 [place] [facility] [place] Cigarette Use Never smoked cigarettes Alcohol Rarely [...] Mass Index) 28.3 kg/m2 Last Menstrual Period [id number] 2 Parity 0 05/22/2018 8:06am BP Systolic 126 mmHg BP Diastolic 76 mmHg Height 61 inches 5'1" Weight 150.00 lb BMI (Body Mass Index) 28.3 kg/m2 Last Menstrual Period 6542151 2 Parity 0 08/30/2017 8:53am BP Systolic 108 mmHg BP Diastolic 64 mmHg Height 61 inches 5'1" Weight 146.00 lb BMI (Body Mass Index) 27.6 kg/m2 Last Menstrual Period 3991735 1 Parity 0 07/19/2017 11:29am BP Systolic 128 mmHg BP Diastolic 78 mmHg Height 61 inches 5'1" Weight 144.00 lb BMI (Body Mass Index) 27.2 kg/m2 Last Menstrual Period [id number] 07/12/2017 9:24am BP Systolic 120 mmHg BP Diastolic 86 mmHg Height 61 inches 5'1" Weight 143.00 lb BMI (Body Mass Index) 27.0 kg/m2 Last Menstrual Period 6430245 1 Parity 0 06/29/2016 8:09am BP Systolic 122 mmHg BP Diastolic 72 mmHg Height 61 inches 5'1" Weight 144.00 lb BMI (Body Mass Index) 27.2 kg/m2 Last Menstrual Period 5606717 1 Parity 0 12/10/2015 8:22am Body Temperature 97.7 F Height 61 inches 5'1" Weight 151.00 lb BMI (Body Mass Index) 28.5 kg/m2 11/26/2015 3:13pm BP Systolic 118 mmHg BP Diastolic 72 mmHg Body Temperature 98.6 F Heart Rate 72 /min Height 61 inches 5'1" Weight 153.00 lb BMI (Body Mass Index) 28.9 kg/m2 Last Menstrual Period [id number] 1 11/25/2015 1:33pm BP Systolic 116 mmHg BP Diastolic 78 mmHg Height 61 inches 5'1" Weight 153.00 lb BMI (Body Mass Index) 28.9 kg/m2 Last Menstrual Period 1390742 1 Parity 0 05/19/2015 8:11am BP Systolic 120 mmHg BP Diastolic 82 mmHg Height 61 inches 5'1" Weight 147.00 lb BMI (Body Mass Index) 27.8 kg/m2 Last Menstrual Period 3224542 0 Parity 0 05/14/2014 9:20am BP Systolic 108 mmHg BP Diastolic 72 mmHg Height 61 inches 5'1" Weight 144.00 lb BMI (Body Mass Index) 27.2 kg/m2 Last Menstrual Period 2739933 0 Parity 0 05/08/2013 7:46am BP Systolic 108 mmHg BP Diastolic 64 mmHg Height 60.5 inches 5'0.50" Weight 140.00 lb BMI (Body Mass Index) 26.9 kg/m2 Last Menstrual Period 5157612 0 04/17/2012 10:57am BP Systolic 110 mmHg BP Diastolic 72 mmHg Height 61 inches 5'1" Weight 132.00 lb BMI (Body Mass Index) 24.9 kg/m2 Last Menstrual Period 4086773 0 Parity 0 04/12/2011 9:27am BP Systolic 112 mmHg BP Diastolic 70 mmHg Height 61.5 inches 5'1.50" Weight 128.00 lb BMI (Body Mass Index) 23.8 kg/m2 Last Menstrual Period 3810630 0 Parity 0 10/16/2009 10:12am BP Systolic 940 mmHg Height 61.5 inches 5'1.50" Weight 137.00 lb BMI (Body Mass Index) 25.5 kg/m2 Last Menstrual Period 1108578 10/14/2008 8:06am BP Systolic 112 mmHg BP Diastolic 70 mmHg Height 61.5 inches 5'1.50" Weight 139.00 lb BMI (Body Mass Index) 25.8 kg/m2 Last Menstrual Period 8856765 0 10/13/2007 9:00am BP Systolic 108 mmHg BP Diastolic 72 mmHg Height 61.5 inches 5'1.50" Weight 147.00 lb BMI (Body Mass Index) 27.3 kg/m2 Last Menstrual Period 4085169 0 07/29/2006 9:08am BP Systolic 100 mmHg BP Diastolic 58 mmHg Height 61.5 inches 5'1.50" Weight 126.00 lb BMI (Body Mass Index) 23.4 kg/m2 Last Menstrual Period 7703114 0 Results Test Date Facility Test Result H/L Range Note CBC Auto Diff 06/13/2018 [facility] White Blood 9.0 10^3/uL N 3.5-10.8 [place] [address] Count [phone] Red Blood Count 4.68 10^6/uL N 4.00-5.40 Hemoglobin 14.3 g/dL N 12.0-16.0 Hematocrit 42 % N 35-47 Mean Corpuscular Volume 90 fL N 80-97 Mean Corpuscular Hemoglobin 31 pg N 27-31 Mean Corpuscular HGB Conc 34 g/dL N 31-36 Red Cell Distribution Width 14 % N 10.5-15 Platelet Count 273 10^3/uL N 150-450 Mean Platelet Volume 8.2 fL N 7.4-10.4 Abs Neutrophils 6.2 10^3/uL N 1.5-7.7 Abs Lymphocytes 1.8 10^3/uL N 1.0-4.8 Abs Monocytes 0.6 10^3/uL N 0-0.8 Abs Eosinophils 0.4 10^3/uL N 0-0.6 Abs Basophils 0.1 10^3/uL N 0-0.2 Abs Nucleated RBC 0 10^3/uL Granulocyte % 68.7 % Lymphocyte % 20.3 % Monocyte % 6.3 % Eosinophil % 4.0 % Basophil % 0.7 % Nucleated Red Blood Cells % 0.1 Comp Metabolic Panel 06/13/2018 [facility] Sodium 138 mmol/L N 135-145 [place] [address] [phone] Potassium 3.9 mmol/L N 3.5-5.0 Chloride 105 mmol/L N 101-111 Co2 Carbon Dioxide 26 mmol/L N 22-32 Anion Gap 7 mmol/L N 2-11 Glucose 75 mg/dL N 70-100 Blood Urea Nitrogen 16 mg/dL N 6-24 Creatinine 0.82 mg/dL N 0.51-0.95 BUN/Creatinine Ratio 19.5 N 8-20 Calcium 9.5 mg/dL N 8.6-10.3 Total Protein 7.5 g/dL N 6.4-8.9 Albumin 4.7 g/dL N 3.2-5.2 Globulin 2.8 g/dL N 2-4 Albumin/Globulin Ratio 1.7 N 1-3 Total Bilirubin 0.60 mg/dL N 0.2-1.0 Alkaline Phosphatase 74 U/L N 34-104 Alt 54 U/L High 7-52 Ast 37 U/L N 13-39 Egfr Non- 77.6 >60 Egfr 93.9 >60 1 Type And Screen 06/13/2018 [facility] Patient Blood Type O [place] [address] [phone] Antibody Screen NEGATIVE Laboratory test 05/22/2018 [facility] Progesterone 20.0 ng/mL 2 [place] [address] [phone] Laboratory test 06/29/2016 [facility] Cytology SEE RESULT 3 [place] [address] BELOW [phone] Human Papilloma Virus Rna Negative N Negative 4 Laboratory test 12/01/2015 [facility] Surgical SEE RESULT 5 [place] [address] Pathology BELOW [phone] Urine Culture And 12/01/2015 [facility] Urine Culture SEE RESULT 6 [place] [address] BELOW [phone] CBC Auto Diff 11/28/2015 [facility] White Blood 10.2 N 3.5-1 [place] [address] Count 10^3/uL 0.8 [phone] Red Blood Count 4.70 10^6/uL N 4.0-5.4 [...] % 0 N Urine Culture And 11/28/2015 [facility] Urine Culture SEE RESULT 7 [place] [address] BELOW [phone] Laboratory test 11/28/2015 [facility] Lactic Acid 1.3 mmol/L N 0.5-2 8 [place] [address] .0 [phone] Protime 11/28/2015 [facility] Inr 0.98 N 0.89- [place] [address] 1.11 [phone] Laboratory test 11/28/2015 [facility] PTT (Aptt) 28.6 seconds N 26.0- [place] [address] 36.3 [phone] Urinalysis Profile 11/28/2015 [facility] [place] [address] [phone] Urine Appearance Cloudy N Urine Specific Ruso 1.018 N 1.010-1.030 Urine pH 6.0 N [...] Present Abnormal Absent Comp Metabolic Panel 11/28/2015 [facility] Sodium 135 mmol/L N 133-145 [place] [address] [phone] Potassium 3.3 mmol/L Low 3.5-5.0 Chloride 104 [...] N >60 Egfr 132.6 N >60 9 Laboratory test finding 11/28/2015 [facility] Lipase 29 U/L N 11.0-82.0 [place] [address] [phone] C Reactive Protein 1.08 mg/L N < 5.00 10 HCG 32539.00 mIU/mL N 11 Laboratory test 11/26/2015 [facility] HCG 23428.00 N 12 finding [place] [address] mIU/mL [phone] Laboratory test 11/25/2015 [facility] HCG 45898.00 N 13 finding [place] [address] mIU/mL [phone] Type And Screen 11/25/2015 [facility] Patient Blood O Positive N [place] [address] Type [phone] Antibody Screen NEGATIVE N Laboratory test 06/05/2015 [facility] Negative N Negative 14 finding [place] [address] (HCG) Urine [phone] Thyroid 05/19/2015 [facility] Thyroid Stim 0.8 mIU/L N 0.3- 4.2 15 Function [place] [address] Hormone Ocean [phone] Laboratory test 05/19/2015 [facility] Cytology SEE RESULT 16 finding [place] [address] BELOW [phone] Human Papilloma Virus Rna Negative N Negative 17 Laboratory test 04/17/2012 [facility] Cytology RUN DATE: 18 finding [place] [address] <SEE [phone] NOTE> Laboratory test 04/12/2011 [facility] Cytology 19 finding [place] [address] --- <SEE [phone] NOTE> Laboratory test 10/16/2009 [facility] Cytology 20 finding [place] [address] --- <SEE [phone] NOTE> Laboratory test 10/14/2008 [facility] Cytology 21 [place] [address] --- <SEE [phone] NOTE> GC/ZHL On Thin 10/14/2008 [facility] GC On Thin NEGATIVE Negative 22 [place] [address] Prep Vial [phone] CHL On Thin Prep Vial NEGATIVE Negative 23 Laboratory test 10/14/2008 [facility] TSH 0.63 MIU/ML 0.34- 5.60 [place] [address] [phone] Laboratory test 08/04/2006 [facility] Glucose 79 mg/dL 70- 105 [place] [address] [phone] Insulin 7.9 MU/L 3.0-28.0 24 TSH 0.70 MIU/ML 0.34-5.60 Laboratory 07/29/2006 [facility] Cytology 25 [place] [address] <SEE NOTE> [phone] Laboratory 07/01/2004 [facility] Rubella IMMUNE [place] [address] Screen [phone] 1 Because ethnic data is not always readily [...] 15-29 5 Kidney failure <15 (or dialysis) 2 Female reference ranges for Progesterone: Follicular phase.......0.3 - 1.5 ng/ml Mid-luteal phase.......5.2 - 18.5 ng/ml Postmenopausal.........< 0.8 ng/ml 1st trimester.........4.7 - 50.0 ng/ml 2nd trimester.........19.4 - 45.3 ng/ml 3 SEE RESULT BELOW Name: ALFREDO NICHOLS : [address]: Nikunj Fuentes MD Acct: [id number] Unit: [id number] AGE: 36 Location: [facility] Re06/29/16 SEX: F Status: REG REF SPEC: [id number] CRISSY: 06/29/1633 [facility] DR: Nikunj Fuentes MD REQ: [id number] RECD: 06/29/164853 STATUS: SOUT _ ORDERED: IMAGE ANALYSIS, HPV/Thin Prep COMMENTS: [id number] FINAL DIAGNOSIS Negative for Intraepithelial lesion or [...] 68. Signed (signature on file) OUMAR Cruz (ASC) 06/30 1426 This Pap test was evaluated with the assistance of the [employer] Test Imaging System. Due to cytologic findings at the business agent microscope, comprehensive manual rescreening by a Flame Cutting Machine Operator Helper may be required. The Pap Smear is [...] performed at Main Lab DEPARTMENT OF PATHOLOGY, [address] [place] [address] Michael Foster M.D. Director [facility] # [id number] 4 The high-risk HPV types detected by the assay include: 16, 18, 31, 33, 35, 39, 45, 51, 52, 56, 58, 59, 66, and 68. 5 SEE RESULT BELOW Name: ALFREDO NICHOLS : [address]: Bandar Hilton MD Acct: [id number] Unit: [id number] AGE: 35 Location: [place] Re12/01/15 SEX: F Status: REG [facility] SPEC: [id number] CRISSY: 12/01/15-0854 [facility] DR: Bandar Hilton MD REQ: [id number] RECD: 12/01/15-1037 STATUS: SOUT _ ORDERED: LEVEL [...] villi are identified. No parts are identified. Splitting Machine Tender sections, two cassettes. Signed (signature on file) Michael Foster MD 1302 END OF REPORT * ML=Testing performed at Main Lab DEPARTMENT OF PATHOLOGY, [address] [place] [address] Michael Foster M.D. Director [facility] # [id number] 6 SEE RESULT BELOW Name: ALFREDO NICHOLS : [address]: Bandar Hilton MD Acct: [id number] Unit: [id number] AGE: 35 Location: [place] Re12/01/15 SEX: F Status: REG SDC SPEC: [id number] CRISSY: 12/01/15-819 [facility] DR: Bandar Hilton MD REQ: [id number] RECD: 12/01/15-1037 STATUS: BELLA BATRES DR: Aram Burton MD _ SOURCE: URINE SPDESC: ORDERED: Urine Culture Procedure Result Reported Site Urine Culture Final 12/02/15- 856 ML No Growth (<1,000 CFU/mL) * ML - MAIN LAB (PSC1) . END OF REPORT * ML=Testing performed at Main Lab DEPARTMENT OF PATHOLOGY, [address] [place] [address] Michael Foster M.D. Director [facility] # [id number] 7 SEE RESULT BELOW Name: ALFREDO NICHOLS : [address]: Chau Langford MD Acct: [id number] Unit: [id number] AGE: 35 Location: ED Re11/28/15 SEX: F Status: DEP ER SPEC: [id number] CRISSY: 11/28/15-1055 [facility] DR: Kate PADRON REQ: [id number] RECD: 11/28/15-1103 STATUS: COMP GISEL DR: Aram Langford MD _ SOURCE: URINE SPDESC: ORDERED: Urine Culture Procedure Result Reported Site Urine Culture Final 11/29/15- 1300 ML Mixed ignacio; possible contamination. Suggest resubmission. * ML - MAIN LAB (PSC1) . END OF REPORT * ML=Testing performed at Main Lab DEPARTMENT OF PATHOLOGY, [address] [place] [address] Michael Foster M.D. Director [facility] # [id number] 8 [facility] Severe Sepsis and Septic Shock Management Bundle [...] 5 Kidney failure <15 (or dialysis) 10 Acute inflammation: >10.00 11 <5.0 Negative 5.0 - 25.0 Indeterminate (Repeat testing recommended after 72 hours) >25.0 Positive Perimenopausal women can display HCG levels of up to 20 mIU/mL 12 <5.0 Negative 5.0 - 25.0 Indeterminate (Repeat testing recommended after 72 hours) >25.0 Positive Perimenopausal women can display HCG levels of up to 20 mIU/mL 13 <5.0 Negative 5.0 - 25.0 Indeterminate (Repeat testing recommended after 72 hours) >25.0 Positive Perimenopausal women can display HCG levels of up to 20 mIU/mL 14 If is still suspected, please repeat test after 48 to 72 hours. This test detects intact HCG only and is indicated for the early detection of . 15 Test Performed by: [address] [address] Unit Director: Nima Lafleur II, M.D., Ph.D. 16 SEE RESULT BELOW Name: ALFREDO NICHOLS : [address]: Nikunj Fuentes MD Acct: [id number] Unit: [id number] AGE: 35 Location: [facility] Re05/19/15 SEX: F Status: REG REF SPEC: [id number] CRISSY: 05/19/150832 SUBM DR: Nikunj Fuentes MD REQ: [id number] RECD: 05/19/15 STATUS: SOUT _ ORDERED: IMAGE [...] and 68. Signed (signature on file) Newton Ren 05/20/15 1415 This Pap test was evaluated with the assistance of the [email or web address] Test Imaging System. Due to cytologic findings at the business agent microscope, comprehensive manual rescreening by a Flame Cutting Machine Operator Helper may be required. The Pap Smear is [...] Main Lab DEPARTMENT OF PATHOLOGY, [facility] [address] [place], [place] [address] Michael Foster M.D. Director [facility] # [id number] 17 The high-risk HPV types detected by the assay include: 16, 18, 31, 33, 35, 39, 45, 51, 52, 56, 58, 59, 66, and 68. 18 RUN DATE: 04/18/12 [facility] LAB LIVE PAGE 1 RUN TIME: [address] [place] [address] Specimen Inquiry Name: SALOALFREDO : [address]: Nikunj Fuentes MD Acct: [id number] Unit: [id number] AGE: 32 Location: [facility] Re04/17/12 SEX: F Status: REG REF SPEC: [id number] CRISSY: 04/17/12-[address]: Nikunj Fuentes MD REQ: [id number] RECD: 04/18/12 STATUS: MADY BATRES DR: _ [...] (signature on file) OUMAR Hayes (ASCP) 04/18/12 6918 This Pap test was evaluated with the assistance of the ThinPrep Test Imaging System. Due to cytologic findings at the business agent microscope, comprehensive manual rescreening by a Flame Cutting Machine Operator Helper may be required. The Pap Smear is [...] performed at Main Lab DEPARTMENT OF PATHOLOGY, [address] [place] [address] Michael Foster M.D. [facility] Permit #[id number] 19 ---- RUN DATE: 04/13/11 [facility] LIVE PAGE 1 RUN TIME: 1531 Specimen Inquiry RUN USER: INTERFACE -- Name: ALFREDO LEONG Status: REG REF Re04/12/11 Age/Sex: 31/F Unit#: [id number] Location: [facility] : [birth year] -- Specimen: [id number] SOUT Spec Date: 04/12/[address]: Nikunj arana MD Spec Type: CYTOLOGY Received: 04/13/1164 Copies to: SOURCE ECTOCERVICAL/ENDOCERVICAL Thin Prep with [...] 04/13/11 1531 -- -- DEPARTMENT OF PATHOLOGY, [address] [place] [address] [facility] Permit #[id number] Viv Witt M.D. Footwear Sales Associate elsa -- 20 ---- RUN DATE: 10/17/09 [facility] NMI LIVE PAGE 1 RUN TIME: 1350 Specimen Inquiry RUN USER: INTERFACE -- Name: ALFREDO LEONG Status: REG REF Re10/16/09 Age/Sex: 29/F Unit#: [id number] [facility] [birth year] -- Specimen: [id number] SOUT Spec Date: 10/16/[address]: Nikunj arana MD Spec Type: CYTOLOGY Received: 10/17/09-0934 Copies to: SOURCE ECTOCERVICAL/ENDOCERVICAL Thin Prep with [...] was evaluated with the assistance of the [employer]Prep Pap Test Imaging System. Due to cytologic findings at the business agent microscope, comprehensive manual rescreening by a Flame Cutting Machine Operator Helper was required. The Pap Smear is a [...] Interpretation electronically signed by: KATTY RICH 10/17/09 2750 -- DEPARTMENT OF PATHOLOGY, [address] [place] [address] [facility] Permit #[id number] Michael Foster M.D. Director Katty Rich M.D. Footwear Sales Associate Dir elsa -- 21 ---- RUN DATE: 10/15/08 [facility] NMI LIVE PAGE 1 RUN TIME: 1556 Specimen Inquiry RUN USER: INTERFACE -- Name: ALFREDO LEONG Status: REG REF Re10/14/08 Age/Sex: 28/F Unit#: [id number] Location: [facility] : 78 -- Specimen: [id number] SOUT Spec Date: 10/14/[address]: Nikunj arana [...] was evaluated with the assistance of the [employer]Prep Pap Test Imaging System. The Pap Smear [...] years. Final Interpretation electronically signed by: Jason FAUSTIN(ASCP) 10/15/08 1556 -- -- DEPARTMENT OF PATHOLOGY, [address] [place] [address] [facility] Permit #[id number] Michael Foster M.D. Director Katty Rich M.D. Footwear Sales Associate Dir elsa -- 22 . A negative result does not preclude the presence of a C.trachomatis or N.gonorrhoeae infection because results are dependent on adequate specimen collection, absence of inhibitors, and sufficient rRNA to be detected. Test results may be affected by improper specimen collection, improper specimen storage, technical error, or specimen mixup. . 23 . A negative result does not preclude the presence of a C.trachomatis or N.gonorrhoeae infection because results are dependent on adequate specimen collection, absence of inhibitors, and sufficient rRNA to be detected. Test results may be affected by improper specimen collection, improper specimen storage, technical error, or specimen mixup. . 24 TEST PERFORMED BY: [employer] [address] [place] [address] 25 ---- RUN DATE: 08/04/06 [facility] NMI LIVE PAGE 1 RUN TIME: 1332 Specimen Inquiry RUN USER: INTERFACE [id number] SALOALFREDO <REG REF 07/29> ([id number]) YSOELYN Fuentes MD,Nikunj Alfonso -- Specimen: [id number] SOUT Spec Date: 07/29/[address]: Nikunj [...] LE(ASCP) 08/04/06 -- -- DEPARTMENT OF PATHOLOGY, [address] [place] [address] [facility] Permit #[id number] Nima Hopkins II, M.D. Director Michael Foster M.D. Footwear Sales Associate Jim irector -- Procedures Date Code Description Status 06/08/2018 18987 Dilation & Curettage (D&C) Completed 06/05/2018 71921 OB Ultrasound First Trimester Completed 05/22/2018 06533 OB Ultrasound First Trimester Completed 07/28/2017 [id number] Mammogram Completed 07/19/2017 66988 Ultrasound,Transvaginal Completed 12/01/2015 73178 Dilation & Curettage (D&C) Completed 06/05/2015 37796 Hysterosalpingogram Completed 11/07/2008 83399 Echography Transvaginal Completed 02/01/2005 33321 Echography Transvaginal Completed Encounters Type Date Location Provider Dx Diagnosis Office Visit 06/05/2018 [facility] Nikunj Fuentes, Z01.818 Encounter for other 2:00p MTimmy preprocedural examination O02.1 Missed Office Visit 05/22/2018 8:00a [facility] Roseanne Alfonso O36.80x0 elida Fuentes M.D. 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 cyst, right side N97.0 Female infertility associated with anovulation Office Visit 07/12/2017 9:40a [facility] Office Nikunj Alfonso Z01.419 Encntr for biofuels research scientist Viv Fuentes exam (general) (routine) w/o abn findings N92.6 Irregular menstruation, unspecified Office Visit 06/29/2016 8:40a [facility] Office Nikunj Alfonso Z01.419 Encntr for biofuels research scientist exam Viv Fuentes (general) (routine) w/o abn findings Office Visit 11/26/2015 2:20p [facility] Office Nupur Gordillo, O36.80x0 w ANP-C inconclusive viability, unsp R10.30 Lower abdominal pain, unspecified Office Visit 11/25/2015 1:40p [facility] Office Nupursabrina Gordillo, O36.80x0 w ANP-C inconclusive viability, unsp Office Visit 05/19/2015 8:40a [facility] Office Nkiunj Alfonso Z01.411 Encntr for biofuels research scientist clara Fuentes M.D. (general) (routine) w abnormal findings E28.2 Polycystic ovarian syndrome Office Visit 05/14/2014 9:40a [facility] Office Nikunj Alfonso V72.31 Routine Marva Fuentes M.D. Examination V26.9 Procreative Management Unspec V76.2 Screening Malignant Neoplasm Cervix Office Visit 05/08/2013 8:00a [facility] Office Nikunj Alfonso V72.31 Routine Marva Fuentes M.D. Examination V26.9 Procreative Management Unspec V76.2 Screening Malignant Neoplasm Cervix Office Visit 04/17/2012 11:00a [facility] Office Nikunj Alfonso V72.31 Routine Marva Fuentes M.D. Examination V76.2 Screening Malignant Neoplasm Cervix Office Visit 04/12/2011 9:40a [facility] Office Nikunj Alfonos V72.31 Routine Marva Fuentes M.D. Examination V76.2 Screening Malignant Neoplasm Cervix Office Visit 10/16/2009 9:40a [facility] Office Nikunj Alfonso V72.31 Routine Marva Fuentes M.D. Examination V16.3 History Family Malignant Neoplasm Breast V76.2 Screening Malignant Neoplasm Cervix Office Visit 10/14/2008 8:20a [facility] Office Nikunj Alfonso V72.31 Routine Marva Fuentes M.D. Examination V76.2 Screening Malignant Neoplasm Cervix V74.5 Screening Examination Venereal Disease 789.9 Abdomen & Pelvis Symptoms Other Office Visit 10/13/2007 9:00a [facility] Office Nikunj Alfonso V72.31 Routine Marva Fuentes M.D. Examination V76.2 Screening Malignant Neoplasm Cervix V76.10 Screening For Malignant Neoplasm Breast Office Visit 07/29/2006 9:00a [facility] Office Nikunj Alfonso V72.31 Routine Marva Fuentes M.D. Examination V77.1 Screening Diabetes Mellitus V76.2 Screening Malignant Neoplasm Cervix Office Visit 07/09/2005 1:00p [facility] Office Nikunj Alfonso V72.31 Routine Marva Fuentes M.D. Examination V76.2 Screening Malignant Neoplasm Cervix 628.9 Infertility Female Unspec Origin 256.4 Polycystic Ovaries Office Visit 02/01/2005 3:40p [facility] Office Nikunj Alfonso 620.2 Ovarian Cyst Other & Viv Fuentes Unspec Office Visit 07/01/2004 7:00a [facility] Office Nikunj Alfonso V26.4 Procreative Viv Fuentes Management General Counseling & Advice V72.31 Routine Associate Professor Of Medicine Examination Office Visit 07/03/2003 8:00a [facility] Nikunj Alfonso V72.3 Examination Viv Fuentes Gynecological Plan of Treatment Future Appointment(s):06/27/2018 2:40 pm - Nikunj Fuentes M.D. at [facility]08/01/2018 8:40 am - Nikunj Fuentes M.D. at [facility]06/13/2018 - Nikunj Fuentes M.D.Z01.818 Encounter for other preprocedural examinationComments:PT EXPLAINED RISKS OF DILATION AND CURRETAGE . <1% RISK OF BLEEDING INFECTION, INJURY TO UTERUS BOWEL OR BLADDER. POSSIBLE RETAINED POC NEED FOR REPEAT DILATION AND CURRETAGE.O02.1 Missed abortionComments:possible retained poc/ pt for repeat D&C
[2018-06-14] MEDS ORDERED: NS 0.9% 1000 ML* 1,000 ML IV ONE (18:15)
[2018-06-14] MEDS ORDERED: Ketorolac INJ* 30 MG/ML 1 ML VIAL IV ONE (18:15)
[2018-06-14] MEDS ORDERED: DiMENhydriNATE IV* 50 MG/ML VIAL IV PUSH ONE (18:15)
[2018-06-14] MEDS ORDERED: Metoclopramide IV* 5 MG/ML 2 ML VIAL IV ONE (18:16)
--- NOTE | 2018-06-14 18:26 | ED ---
Complex/Multi-Sys Presentation - HPI Summary HPI Summary: A 38 y/o F presents to ED with migraine onset three days ago and severely worsening today upon waking. Pt had a recent D&C last week and had to return for second D&C yesterday. Pt has been in contact with CHANTEL Perez. She states her vaginal bleeding is under control, she has mild lower abd pain. 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 Previously, Reglan, Benadryl, Dilaudid and IV fluids given very slowly have alleviated it. Associated sx: mild dizziness, photophobia. Denies fever, CP, SOB. Pt did get her flu shot this year. Pt gets Botox every 6 months for her migraines. States she did have spinal anesthesia last week and last pm, but states she knows that it is her typical migraine, and not a spinal headache. States she had normal lab work last pm when she had her D&C. She sees Dr. Allison, PCP, for her migraines. No ETOH, no drugs, non- smoker. PMHx: DVT in UE; shoulder surgery. 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 Home Medications Medication Instructions Recorded Confirmed Type NK [No Home Medications Reported] 06/13/18 06/14/18 History - History Of Current Complaint Chief Complaint: EDHeadache Time Seen by Provider: 06/14/18 18:11 Hx Obtained From: Patient, Family/Riveter Hand - Onset/Duration: Gradual Onset, Lasting Days, Still Present Timing: Constant Severity Currently: Severe - 10 out of 10 Severity Initially: Moderate Location: Pain At: - right frontal, right orbit Character: Migraine - typical migraine Aggravating Factor(s): Bright Lights Alleviating Factor(s): Nothing Associated Signs And Symptoms: Positive: Dizziness, Other - pos: photophobia. Negative: SOB, Chest Pain, Fever Related History: Recent Hospitalization - last pm for D&C and last week for D&C - Allergies/Home Medications Allergies/Adverse Reactions: Allergies Allergy/AdvReac Type Severity Reaction Status Date / Time latex Allergy Severe Anaphylatic Verified 06/14/18 16:47 Shock cephalexin [From Keflex] Allergy Hives Verified 06/14/18 16:47 morphine Allergy Rash Verified 06/14/18 16:47 Penicillins Allergy Hives Verified 06/14/18 16:47 PMH/Surg Hx/FS Hx/Imm Hx Previously Healthy: No Endocrine/Hematology History: Denies: Hx Anticoagulant Therapy, Hx Blood Disorders, Hx Diabetes, Hx Thyroid Disease, Hx Anemia, Hx Unexplained Bleeding Cardiovascular History: Reports: Hx Deep Vein Thrombosis - upper extremity , Other Cardiovascular Problems/Disorders - Acute idiopathic pericarditis 2010, no longer sees Dr Alexander Denies: Hx Congestive Heart Failure, Hx Hypertension, Hx Pacemaker/ICD Respiratory History: Reports: Hx Asthma - Hx of bronchitis induced asthma, Other Respiratory Problems/Disorders - pneumonia 2011 Denies: Hx Chronic Obstructive Pulmonary Disease (COPD) GI History: Reports: Other GI Disorders - Adrenal hyperplasia Denies: Hx Diverticulosis, Hx Gastroesophageal Reflux Disease, Hx Hiatal Hernia History: Reports: Other Problems/Disorders - PCOS-per H&P Denies: Hx Renal Disease Musculoskeletal History: Reports: Other Musculoskeletal History - right knee and right shoulder arthroscopies, Left shoulder surgery Sensory History: Denies: Hx Contacts or Glasses, Hx Hearing Aid Opthamlomology History: Denies: Hx Contacts or Glasses Neurological History: Reports: Hx Migraine - Has botox injections every 6 months for migraines- 04/06 last dose Denies: Hx Dementia, Hx Seizures, Other Neuro Impairments/Disorders Psychiatric History: Denies: Hx Panic Disorder, Hx Substance Abuse - Cancer History Hx Chemotherapy: No Hx Radiation Therapy: No - Surgical History Surgery Procedure, Year, and Place: 2010 right shoulder [facility] right ovarian cyst removal [facility]. 2003 Appendectomy [facility]. 2002 pilondial cyst [facility]. 2016 D&C [facility]. left shoulder surgery. 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 Lives: With Family Alcohol Use: None Hx Substance Use: No Substance Use Type: Reports: None Hx Tobacco Use: No Smoking Status (MU): Never Smoked Tobacco Have You Smoked in the Last Year: No Review of Systems Negative: Fever Positive: Photophobia Negative: Chest Pain Negative: Shortness Of Breath Positive: Nausea Positive: other - vag bleeding, controlled, S/P D&C last pm Skin: Negative Neurological: Other - pos: dizziness Positive: Headache - migraine Psychological: Normal All Other Systems Reviewed And Are Negative: Yes Physical Exam - Summary Physical Exam Summary: Appearance: Well-appearing, moderate pain distress, well-nourished, photophobic Skin: Warm, color reflects adequate perfusion, dry, L4-L5 with puncture site visible after spinal anesthesia, no redness, tenderness or drainage Head: Normal Head/Face inspection, atraumatic Eyes: Conjunctiva clear, PERRL, EOMI, no nystagmus ENT: Normal inspection Neck: Supple, no nodes, no JVD Respiratory: Lungs clear, normal breath sounds, no respiratory distress Cardio: RRR, No murmur, pulses normal, brisk capillary refill Abdomen: Soft, nontender Bowel sounds: Present Musculoskeletal: Strength Intact/ROM intact, no calf tenderness, no edema. Psychological: Normal Neuro: A&O x3, CN II-XII intact, motor function 5/5, sensation intact, cerebellar normal Triage Information Reviewed: Yes Vital Signs On Initial Exam: Initial Vitals Temp Pulse Resp BP Pulse Ox 98.1 F 74 20 122/87 100 06/14/18 16:44 06/14/18 16:44 06/14/18 16:44 06/14/18 16:44 06/14/18 16:44 Vital Signs Reviewed: Yes Diagnostics - Vital Signs Vital Signs Temp Pulse Resp BP Pulse Ox 06/14/18 16:44 98.1 F 74 20 122/87 100 - Laboratory Lab Statement: Any lab studies that have been ordered have been reviewed, and results considered in the medical decision making process. Complex Multi-Symp Course/Dx Course Of Treatment: Pt is a 38 y/o F presenting with her typical R orbital migraine onset three days ago and severely worsening today upon waking. Pt had a recent D&C last week and had to return for second D&C yesterday. Previously, Reglan, Benadryl, Dilaudid and IV fluids given very slowly have alleviated it. Associated sx: mild dizziness, photophobia. SIGN-OUT AT SHIFT CHANGE TO VITO BEST PENDING MEDICATIONS, AND DISPO. - Diagnoses Provider Diagnoses: Migraine Discharge - Sign-Out/Discharge Documenting (check all that apply): Sign-Out Patient Signing out patient TO: Miguel Toney - pending medications and improvement of sxs - Discharge Plan Condition: Stable Disposition: HOME Prescriptions: Ondansetron ODT TAB* [Zofran 4 MG Odt TAB*] 4 mg PO Q8H PRN 4 Days #14 tab.odt PRN Reason: Nausea Patient Education Materials: Migraine Headache (ED) Referrals: Aram Burton MD [Primary Care Provider] - 2 Days Additional Instructions: You were given dimenhydrinate (dramamine) 50 IV, reglan 10mg IV, dilaudid 0.5mg IV with relief of your symptoms. Return to the ER if you have any new or worsening symptoms. - Billing Disposition and Condition Condition: STABLE Disposition: Home - Attestation Statements Document Initiated by Scribe: Yes Documenting Scribe: Sundar Lombardo Provider For Whom Haleyibe is Documenting (Include Credential): Dr. Ines Vasquez MD Scribe Attestation: Sundar Clements scribed for Dr. Ines Vasquez MD on 06/14/18 at 2144. Scribe Documentation Reviewed: Yes Provider Attestation: The documentation as recorded by the Sundar chavis accurately reflects the service I personally performed and the decisions made by , Dr. Ines Vasquez MD Status of Scribe Document: Viewed
[2018-06-14] MEDS ORDERED: HYDROmorphone INJ* 2 MG/ML CARPUJECT SYRINGE IV SLOW PU ONE (18:35)
[2018-06-14] MEDS ORDERED: HYDROmorphone INJ* 0.5 MG/0.5 ML SYRINGE IV ONE ×2 (19:00→20:00)
--- NOTE | 2018-06-14 19:47 | PN ---
Progress Note - Progress Note Date of Service: 06/14/18 Note: Patient signed out to me by Dr. Turner pending improvement of patient's symptoms. Patient states symptoms are very much improved, only mild headache remaining. Patient states she is ready to go home. Vital signs are within normal limits and stable. Rx for Zofran.
[2018-06-14 19:56] VITALS: BP 115/70
--- NOTE | 2018-06-16 18:53 | CONSULT ---
Consult Consult: 38yo woman with PMH migraines requiring botox, a D&C on June 08 and , and with whom I spoke with over the phone about symptoms of a headache. She went to the ED recently for symptoms of a H/A which she feels was similar to her previous migraines. She says that her most recent H/A is different than her others in the regard that she has stiffness from the back of her head to the top of her trapezius. She denies having any chills, fevers, rigors, and that she is able to touch her chin to her chest. She is able to get up and move around the house, sit in a recliner, and let the dogs outs but she has to move slow 2/2 her headache. As per the request of her CHIEF DEPUTY CORONER she has been laying in bed and feels that her H/A is better when laying down. She has been taking around the clock Ibuprofen and drank 2 sodas today. I discussed with her that if she has any symptoms of meningitis (fever, chills, etc) that she should go to the ED right away. We also discussed the low likelihood that this is a PDPH. The spinal was performed with a 25G pencan and it was a quick atraumatic spinal. A study done by Shantell et al found that in 1,193 patients who had a spinal with a 25G pencan, there was a 1.3% incidence of a PDPH. In this study only five women needed a blood patch and all of the women who had a PDPH after a section responded to conservative treatment. I suggested that she try conservative treatment prior to attempting a blood patch. We discussed adding 4g of APAP/day to her ibuprofen and 300-500mg of caffeine once or twice per day. Sodas typically only have about 50mg of caffeine so I suggested taking caffeine pills starting tomorrow morning and if it does not resolve than to go the the ED for further evaluation. - Ayesha Sam, DO
== END 2018-06-14 19:55 | disposition home or self-care (01) ==
LOC: ED 16:39
DX: G43.909 Migraine, unspecified, not intractable, without status migrainosus (principal); R42 Dizziness and giddiness; Z88.0 Allergy status to penicillin; N93.9 Abnormal uterine and vaginal bleeding, unspecified
CPT/HCPCS: 96361; 96374; 96375; 96376; 99283; J1170; J1240; J2765

== ENCOUNTER 2018-08-23 07:38 | Day surgery (SDC) | payer BC ==
[~2018-08-23 07:38] MED LIST changes: -Buffered Lidocaine 0.9% SYRIN* 5 ML/SYR SYRINGE INTRADERM ONE; +Buffered Lidocaine 1% SYRIN* 1 ML/SYRINGE INTRADERM ONE; +Famotidine IV* 10 MG/ML 2 ML (20 mg) IV ONE; +Lactated Ringers 1000 ML Bag* 1,000 ML IV SCH
[2018-08-23] MEDS ORDERED: Famotidine IV* 10 MG/ML 2 ML (20 mg) ONE (10:13)
[2018-08-23] MEDS ORDERED: Buffered Lidocaine 1% SYRIN* 1 ML/SYRINGE INTRADERM ONE (10:13)
[2018-08-23] MEDS ORDERED: Chloroprocaine 2%* 20 ML VIAL ONE (10:19)
[2018-08-23] MEDS ORDERED: DOXYcycline IV* 100 MG in NS 0.9% 250 ML* 250 ML IVPB ONE (11:00)
[2018-08-23] MEDS ORDERED: Ketorolac INJ* 30 MG/ML 1 ML VIAL ONE (11:02)
[2018-08-23] MEDS ORDERED: OXYTOCIN* 10 UNITS/ML 1 ML VIAL ONE (11:02)
[2018-08-23] MEDS ORDERED: Propofol* 10 MG/ML 20 ML BTL ONE (11:02)
[2018-08-23] MEDS ORDERED: Ondansetron INJ* 2 MG/ML VIAL ONE (11:04)
[2018-08-23] MEDS ORDERED: Silver Nitrate/Potassium Nitr* 1 EA STICK ONE (11:08)
[2018-08-23] MEDS ORDERED: Ondansetron INJ* 2 MG/ML VIAL IV PRN (11:11)
[2018-08-23] MEDS ORDERED: Naloxone* 0.4 MG/ML 1 ML VIAL IV PRN (11:11)
--- NOTE | 2018-08-23 12:12 | OP ---
OPERATIVE REPORT: DATE OF OPERATION: 08/23/18 DATE OF : 78 SURGEON: Dr. Fuentes. ANESTHESIA: Spinal PRE-OP DIAGNOSIS: Missed POST-OP DIAGNOSIS: Missed . OPERATIVE PROCEDURE: D and C. ESTIMATED BLOOD LOSS: 50 cc. SPECIMENS: Include products of conception. FINDINGS: Moderate amount of tissue and uterus was anteverted and 8 to 10 weeks size. DESCRIPTION OF PROCEDURE: The patient identified, procedure identified as a D and C. The patient wa s taken to the operating room, prepped and draped in the usual fashion in dorsal lithotomy position u nder spinal anesthesia. Two single-tooth tenaculums were placed on the anterior lip of the cervix. The cervix was easily dilated up to a #31 Galvan dilator. The #10 suction curette was inserted. Suct ion curettage performed with a moderate amount of tissue obtained. A sharp curette was inserted and sharp curettage was performed until a gritty sensation was felt throughout the circumference. No fur ther tissue was obtained using the polyp forceps. The suction was reinserted again, no further tissu e was obtained. Good hemostasis was verified and tenaculums were removed, and the tenaculum sites we re touched with silver nitrate. Good hemostasis again verified. All sponge and instruments counts w ere correct. The patient returned to recovery room in stable condition. [id number]/[facility] #: [id number]
[2018-08-23] MEDS ORDERED: Acetaminophen TAB* 325 MG ONE (13:02)
[2018-08-23 14:13] VITALS: BP 104/72
== END 2018-08-23 14:14 | disposition home or self-care (01) ==
LOC: OR 07:38
PROVIDERS: ATTEND Obstetrics & Gynecology
DX: O02.1 Missed abortion (principal); J45.909 Unspecified asthma, uncomplicated; E27.8 Other specified disorders of adrenal gland
CPT/HCPCS: 88305; A9270-GY; J1885; J2400; J2405; J2590; J2704

== ENCOUNTER 2018-12-20 17:30 | Emergency (ER) | payer OTHER ==
--- NOTE | 2018-12-20 18:00 | ED ---
- HPI Summary HPI Summary: 38-year-old female presents with body fluid exposure today. 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 There could be blood on the body fluid. She immediately washed the area with eye wash station. Her tetanus up-to-date. Has no pertinent medical conditions. Is immunized. source patient is believed to be low risk. - History of Current Complaint Chief Complaint: EDExposureBodyFluid Stated Complaint: EXPOSURE PER PT Time Seen by Provider: 12/20/18 17:46 PMH/Surg Hx/FS Hx/Imm Hx Endocrine/Hematology History: Denies: Hx Anticoagulant Therapy, Hx Blood Disorders, Hx Diabetes, Hx Thyroid Disease, Hx Anemia, Hx Unexplained Bleeding Cardiovascular History: Reports: Hx Deep Vein Thrombosis - upper extremity , Other Cardiovascular Problems/Disorders - Acute idiopathic pericarditis 2010, no longer sees Dr Alexander Denies: Hx Congestive Heart Failure, Hx Hypertension, Hx Pacemaker/ICD Respiratory History: Reports: Hx Asthma - Hx of bronchitis induced asthma x1, Other Respiratory Problems/Disorders - pneumonia 2011 Denies: Hx Chronic Obstructive Pulmonary Disease (COPD) GI History: Reports: Other GI Disorders - Adrenal hyperplasia Denies: Hx Diverticulosis, Hx Gastroesophageal Reflux Disease, Hx Hiatal Hernia History: Reports: Other Problems/Disorders - PCOS Denies: Hx Renal Disease Musculoskeletal History: Reports: Other Musculoskeletal History - right knee and right shoulder arthroscopies, Left shoulder surgery Sensory History: Denies: Hx Contacts or Glasses, Hx Hearing Aid Opthamlomology History: Denies: Hx Contacts or Glasses Neurological History: Reports: Hx Migraine - Has botox injections every 6 months for migraines- 04/06 last dose Denies: Hx Dementia, Hx Seizures, Other Neuro Impairments/Disorders Psychiatric History: Denies: Hx Panic Disorder, Hx Substance Abuse - Cancer History Hx Chemotherapy: No Hx Radiation Therapy: No - Surgical History Surgery Procedure, Year, and Place: 2010 right shoulder [facility]. [facility] 2001 right ovarian cyst removal [facility]. 2002 Appendectomy [facility] 2002 pilondial cyst [facility]. 2016 D&C [facility]. left shoulder surgery 2018. 05/2018 D&C x 2, [facility] Hx Anesthesia Reactions: Yes - Nausea with narcotics Infectious Disease History: No Infectious Disease History: Denies: Hx Hepatitis, Hx Human Immunodeficiency Virus (HIV), Traveled Outside the [place] in Last 30 Days - Family History Known Family History: Positive: Unknown, Cardiac Disease, Hypertension, Diabetes , Other - Negative for Colitis Family History: Mom: MS, Breast CA - Social History Alcohol Use: None Hx Substance Use: No Substance Use Type: Reports: None Hx Tobacco Use: No Smoking Status (MU): Never Smoked Tobacco Have You Smoked in the Last Year: No Review of Systems Negative: Fever Positive: Other - body fluid exposure Negative: Chest Pain Negative: Shortness Of Breath All Other Systems Reviewed And Are Negative: Yes Physical Exam Triage Information Reviewed: Yes Vital Signs On Initial Exam: Initial Vitals Temp Pulse Resp BP Pulse Ox 98.7 F 87 19 118/91 97 12/20/18 17:32 12/20/18 17:32 12/20/18 17:32 12/20/18 17:32 12/20/18 17:32 Vital Signs Reviewed: Yes Appearance: Positive: Well-Appearing Skin: Positive: Warm, Dry Head/Face: Positive: Normal Head/Face Inspection Eyes: Positive: Normal, EOMI, RENETTA, Conjunctiva Clear Respiratory/Lung Sounds: Positive: Clear to Auscultation, Breath Sounds Present Cardiovascular: Positive: Normal, RRR Musculoskeletal: Positive: Normal Neurological: Positive: Normal Psychiatric: Positive: Normal Diagnostics - Vital Signs Vital Signs Temp Pulse Resp BP Pulse Ox 12/20/18 17:32 98.7 F 87 19 118/91 97 - Laboratory Result Diagrams: 12/20/18 18:23 12/20/18 18:23 Lab Statement: Any lab studies that have been ordered have been reviewed, and results considered in the medical decision making process. 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 There could be blood on the body fluid. She immediately washed the area with eye wash station. Her tetanus up-to-date. Has no pertinent medical conditions. Is immunized. source patient is believed to be low risk. on exam normal physicial exam. source patient MR#[id number] is negative. discussed no further action needed. - Diagnoses Provider Diagnoses: Patient exposure to body fluids Discharge - Sign-Out/Discharge Documenting (check all that apply): Patient Departure Patient Received Moderate/Deep Sedation with Procedure: No - Discharge Plan Condition: Good Disposition: HOME Referrals: Aram Burton MD [Primary Care Provider] - Additional Instructions: follow up with occupational medicine as needed Return to ED if develop any new or worsening symptoms - Billing Disposition and Condition Condition: GOOD Disposition: Home
--- OUTSIDE RECORDS SUMMARY | 2018-12-20 18:05 | XMS REPORT | Continuity of Care Document ---
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 Other C.M.A. Office Visit 04/17/2012 Leta Goldberg 420.91 Pericarditis 3:00p Cardiology Viv Alexander Idiopathic Acute 786.50 Pain Chest Unspec Office Visit 05/04/2011 11:00a Orthopedic Sebastien Ortiz, 840.4 Sprains & Strains Services Of Viv Rotator Cuff C.M.A. (Capsule) Office Visit 05/26/2010 2:20p Leta Goldberg 420.91 Pericarditis Cardiology Viv Alexander Idiopathic Acute 786.50 Pain Chest Unspec Office Visit 06/09/2009 3:40p [place] Juliocesar Goldberg 420.91 Pericarditis Cardiology Viv Alexander Idiopathic Acute 786.50 Pain Chest Unspec 487.1 Influenza W/ Other Respiratory Manifestations Office Visit 04/02/2009 [facility] Joseph 487.1 Influenza W/ Other 1:00a Asselise pozo M.D. Respiratory Hospitalists Manifestations 423.9 Pericardium Unspec Diseases Office Visit 04/01/2009 [facility] Dimitri 487.1 Influenza W/ Other 12:45a Asselise pozo M.D. Respiratory Hospitalists Manifestations 276.50 Volume Depletion, Unspecified 423.9 Pericardium Unspec Diseases Office Visit 03/31/2009 [facility] Noé Alfonso Guler, 423.9 Pericardium 1:30a elise Ugalde M.D. Unspec Diseases Hospitalists Office Visit 03/27/2009 [facility] Juliocesar Goldberg 786.50 Pain Chest Unspec 3:20p Viv Alexander 424.0 Mitral Valve Disorder 420.91 Pericarditis Idiopathic Acute Office Visit 01/31/2008 3:00p [facility] Juliocesar Goldberg 786.50 Pain Chest Viv Alexander Unspec 794.31 Electrocardiogram (ECG) (EKG) Abnormal Office Visit 04/18/2007 4:00p [facility] ECHO 785.1 Palpitations Schedule 786.50 Pain Chest Unspec 794.31 Electrocardiogram (ECG) (EKG) Abnormal Office Visit 04/18/2007 4:20p [facility] Juliocesar Goldberg 785.1 Palpitations Viv Alexander 786.50 Pain Chest Unspec 794.31 Electrocardiogram (ECG) (EKG) Abnormal Plan of Treatment Future Appointment(s):01/04/2019 10:30 am - Rosalva Mcdaniel MD at [facility].12/05/2018 - Rosalva Mcdaniel, MDS49.92xA Unspecified injury of left shoulder and upper arm, initial eS46.012D Strain of muscle(s) and tendon(s ) of the rotator cuff of lefNew Therapy:Physical WevorfoC48.612 Ankylosis, left shoulderNew Therapy:Physical TherapyFollow up:Follow up: 4-5 weeks
[2018-12-20 18:29] LABS: ABS Basophils 0.1 10^3/ul (0-0.2); ABS Eosinophils 0.2 10^3/ul (0-0.6); ABS Lymphocytes 1.8 10^3/ul (1.0-4.8); ABS Monocytes 0.5 10^3/ul (0-0.8); ABS Neutrophils 7.3 10^3/ul (1.5-7.7); Eosinophil % 2.5 %; Hematocrit 43 % (35-47); Hemoglobin 14.9 g/dL (12.0-16.0); Mean Corpuscular HGB Conc 35 g/dL (31-36); Mean Corpuscular Hemoglobin 31 pg (27-31); Mean Corpuscular Volume 88 fL (80-97); Mean Platelet Volume 8.1 fL (7.4-10.4); Platelet Count 246 10^3/uL (150-450); Red Blood Count 4.83 10^6 /uL (3.70-4.87); Red Cell Distribution Width 13 % (10-15); White Blood Count 9.9 10^3/uL (3.5-10.8)
[2018-12-20 18:46] LABS: ALT 25 U/L (7-52); AST 20 U/L (13-39); Albumin 4.7 g/dL (3.2-5.2); Albumin/Globulin Ratio 1.6 (1-3); Alkaline Phosphatase 50 U/L (34-104); Anion Gap 7 mmol/L (2-11); BUN/Creatinine Ratio 16.5 (8-20); Blood Urea Nitrogen 13 mg/dL (6-24); CO2 Carbon Dioxide 25 mmol/L (22-32); Calcium 9.7 mg/dL (8.6-10.3); Chloride 106 mmol/L (101-111); Glucose 91 mg/dL (70-100); Potassium 3.7 mmol/L (3.5-5.0); Sodium 138 mmol/L (135-145); Total Protein 7.7 g/dL (6.4-8.9)
[2018-12-20 18:53] LABS: HCG Pregnancy < 0.60 mIU/mL
[2018-12-20 19:20] LABS: Rapid HIV 1 Nonreactive (Nonreactive)
[2018-12-20 20:17] LABS: Hepatitis B Surface Antigen Negative (Negative)
[2018-12-20 20:34] LABS: Hepatitis B Surface Ab Immune (Immune); Hepatitis C Antibody Negative (Negative)
[2018-12-20 21:10] VITALS: BP 128/86
== END 2018-12-20 21:12 | disposition home or self-care (01) ==
LOC: ED 17:30
DX: Z77.21 Contact with and (suspected) exposure to potentially hazardous body fluids (principal); Z86.718 Personal history of other venous thrombosis and embolism
CPT/HCPCS: 36415; 80053; 84702; 85025; 86703; 86706; 86803; 87340; 99282

== ENCOUNTER 2019-05-24 18:47 | Emergency (ER) | payer BC, OTHER ==
[2019-05-24] MEDS ORDERED: Ketorolac INJ* 30 MG/ML 1 ML VIAL IM ONE (19:29)
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
--- OUTSIDE RECORDS SUMMARY | 2019-05-24 19:46 | XMS REPORT | Continuity of Care Document ---
:1980 External Reference #:[id number] Author Name Aram Tavarez M.D. Address [address] [place] [address] Care Team Providers Name Role Phone Aram Burton M.D. - Internal Care Team Information Mental Health Assistant Medicine Problems Active Problems Provider Date Polycystic ovaries Onset: Adrenal hyperplasia Onset: Anxiety Onset: Posttraumatic stress disorder Onset: Migraine Onset: Squamous blepharitis Aram Tavarez M.D. Onset: 03/27/2019 Presbyopia Aram Tavarez M.D. Onset: 03/27/2019 Social History Type Date Description Comments Sex Unknown ETOH Use Rarely consumes alcohol Tobacco Use Start: Unknown Patient has never smoked Smoking Status Reviewed: 03/27/19 Patient has never smoked Allergies, Adverse Reactions, Alerts Active Allergies Reaction Severity Comments Date Latex 03/27/2019 Penicillin 03/27/2019 Keflex 03/27/2019 Medications Active Medications SIG Qnty Indications Ordering Provider Date Multi Vitamin Daily Unknown Tablets Ibuprofen as needed Unknown 200mg Capsules Immunizations Description No Information Available Vital Signs Description No Information Available Results Description No Information Available Procedures Description No Information Available Medical Devices Description No Information Available Encounters Description No Information Available Assessments Date Code Description Provider 03/27/2019 H52.4 Presbyopia Aram Tavarez M.D. 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 03/27/2019 H01.024 Squamous blepharitis left upper eyelid Aram Tavarez M.D. Plan of Treatment 03/27/2019 - Aram J. Arleo, M.D.H52.4 PresbyopiaComments:Smoking can increase the risk of developing or worsening any eye related disease, as well as affect your overall health. If you are a smoker, we strongly recommend that you quit.If you are not a smoker, we strongly recommend that you do not start. You have presbyopia. This is when the lens in your eye loses the ability to change focus, and happens as we age. A pair of reading glasses will help you see up close.H01.021 Squamous blepharitis right upper qtlqtcG53.024 Squamous blepharitis left upper eyelid Functional Status Description No Information Available Mental Status Description No Information Available Referrals Description No Information Available
[2019-05-24 21:23] VITALS: BP 130/80
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
== END 2019-05-24 21:21 | disposition home or self-care (01) ==
LOC: ED 18:47
DX: M25.512 Pain in left shoulder (principal); V49.40XA Driver injured in collision with unspecified motor vehicles in traffic accident, initial encounter; Y92.410 Unspecified street and highway as the place of occurrence of the external cause; Z88.5 Allergy status to narcotic agent; Z88.0 Allergy status to penicillin; Z88.1 Allergy status to other antibiotic agents; Z91.040 Latex allergy status; Z90.89 Acquired absence of other organs
CPT/HCPCS: 96372; 99282; J1885